=== PATIENT | female | born 1985 | race Two or more races ===

== ENCOUNTER 2020-02-17 09:35 | Emergency (ER) | payer OTHER, SELFPAY ==
[2020-02-17 09:46] VITALS: PULSE 95; RESP 93; TEMP 36.8; O2SAT 99; BMI 33.3
--- NOTE | 2020-02-17 10:28 | ED_ITS ---
HPI - Back Pain/Injury General Chief Complaint: Back Pain/Injury Stated Complaint: multiple complaints Time Seen by Provider: 02/17/20 09:54 History of Present Illness HPI Narrative: patient presents to the ED for posterior neck pain, upper, and lower back pain for one week that is worse on movement. patient denies any photophobia, neck stiffness, fever, chills, nausea, vomiting, flank pain, abdominal pain, dysuria, hematuria, vaginal bleeding, or vaginal discharge. Patient denies any headache. Patient denies any trauma or fall. patient denies any urinary / bowel incontinence. Patient states normal gait MD elicited complaint: back pain Onset (ago): week(s) (1 week) Related Data Allergies Allergy/AdvReac Type Severity Reaction Status Date / Time penicillin V Allergy Unknown Rash Verified 02/17/20 09:45 Review of Systems Review of Systems: Yes all other systems are reviewed and are negative Constitutional: Constitutional: Reports as per HPI, Reports no additional constitutional complaints, Denies body ache(s), Denies chills, Denies fatigue, Denies headache(s), Denies malaise and Denies night sweats Eyes: Eyes: Reports as per HPI, Reports no additional eye complaints, Denies blind spots and Denies blurry vision ENT: Reports system reviewed and no additional complaints, except as documented, Reports as per HPI and Denies headache(s) Cardiovascular: Cardiovascular: Reports no additional cardiovascular complaints, Denies chest pain, Denies chest pain at rest, Denies chest pain with activity, Denies Epigastric Pain, Denies rapid heart rate, Denies pedal edema and Denies edema Respiratory: Respiratory: Reports as per HPI and Reports no additional respiratory complaints Gastrointestinal: Gastrointestinal: Reports as per HPI, Reports no additional gastrointestinal complaints, Denies abdominal pain, Denies belching, Denies melena, Denies bloating, Denies hematochezia, Denies tenesmus, Denies coffee ground emesis, Denies constipation and Denies excessive flatus Genitourinary: Genitourinary: Denies abnormal vaginal bleeding, Denies amenorrhea, Denies hematuria, Denies urinary frequency and Denies difficulty vo iding Musculoskeletal: Comments: back pain Neurologic: Denies headache(s) Endocrine: Endocrine: Denies fatigue [facility] Past Medical History Medical History (Updated 02/17/20 @ 12:35 by AYAKA Rodriguez) Patient denies significant medical history Surgical History (Updated 02/17/20 @ 09:49 by Chelsey Buitrago) H/O tubal ligation Social History Social History Alcohol intake: current Alcohol intake frequency: holidays/special occasions only Smoking Status: Former smoker Use of substances other than those prescribed or required for medical reasons: No Advance Directives: Yes Advance Directives Information Provided: Yes Advance Directives on File: No Physical Exam Vital Signs: Vital Signs: Vital Signs Temp Pulse Resp BP Pulse Ox 02/17/20 11:54 98 F 60 16 115/52 L 100 02/17/20 09:46 98.3 F 95 93 H 99 Body Mass Index 33.3 Const: General: cooperative, healthy appearing and comfortable Orientation/consciousness: patient oriented x3 HENMT: Head: Yes normal to inspection Eyes: General: appearance normal, both eyes and all related structures Neck: Other: Mild posterior neck tenderness on palpation. Negative for neck stiffness Neck: Yes normal visual inspection, Yes full ROM, No no lymphadenopathy, Yes no meningeal signs, No anterior neck swelling, No bilateral parotid enlargement, No lymphadenopathy, No midline deformity, No positive Brudzinski's sign, No positive Kernig's sign and Yes no JVD Chest: Chest palpation & inspection: normal inspection of the chest and normal palpation of entire chest wall Resp: Effort & Inspection: normal respiratory effort, able to speak in complete sentences, normal respiratory pattern, no audible wheezes, no cough, respiratory effort not decreased, no grunting, not labored, no nasal flaring, no paradoxical thoraco-abdom movements and no pursed lip breathing Auscultation: clear to auscultation bilaterally Cardio: Jugular venous distension: no JVD Rate: regular rate Heart sounds: S1 normal heart sound present and S2 normal heart sound present GI: Inspection: Yes normal to inspection, No abdominal wall ecchymosis, No Abdominal wall edema, No distended and No incision Palpation (GI): not firm, nontender, no guarding, not rigid, hepatosplenomegaly present and no hepatosplenomegaly : General: Yes no CVA tenderness Back/Spine/Pelvis: Back: no CVA tenderness and back tenderness ( positive for thoracic and lumbar spine tenderness.) Skin: General skin exam: no rashes or lesions noted Neuro: General: patient oriented x3, gait normal, no meningeal signs and CN's II-XI intact bilaterally Cranial nerves: Yes CN's II-XII intact bilaterally Extrem: Other: normal gait General: Yes normal to inspection and Yes full ROM Psych: Appearance: grossly normal and well kempt Course Course Course Narrative: PATIENT'S WILL HAVE NECK CT, THORACIC X-RAY, AND LUMBAR X-RAY TO EVALUATE FOR ARTHRITIS OR FRACTURE. PATIENT HAS NORMAL GAIT. HISTORY PHYSICAL EXAM DOES NOT INDICATE MENINGITIS. NEGATIVE FOR ANY NECK STIFFNESS, PHOTOPHOBIA, OR MENINGEAL SIGNS. Reevaluation(s) Reevaluation #1: PATIENT IMAGES WERE ALL NEGATIVE FOR FRACTURES OR ARTHRITIS. DIAGNOSIS MUSCULAR PAIN. Time: 12:22 MDM - Back Pain/Injury MDM Narrative Medical decision making narrative: DIAGNOSIS IS STRAIN. NEGATIVE FOR FRACTURE OR ARTHRITIS. UA does not indicate UTI. UA indicate more did catch. Patient does not have any urinary symptoms andAnd back pain is all in the spine. negative for any CVA for flanks Lab Data Labs: Lab Results 02/17/20 02/17/20 Range/Units 10:18 10:18 Urine Color YELLOW Urine Appearance HAZY Urine pH 5.5 (5.0-8.0) Ur Specific [place] >= 1.030 H (1.005-1.025) Urine Protein NEG (NEG-TRACE) MG/DL Urine Glucose (UA) NEG (NEG) MG/DL Urine Ketones NEG (NEG) MG/DL Urine Blood NEG (NEG) Urine Nitrite NEG (NEG) Ur Leukocyte Esterase TRACE H (NEG) Urine RBC 0 (0) /HPF Urine WBC 5-9 H (0-4) /HPF Ur Squamous Epith Cells 2+ /LPF Urine Bacteria 1+ /LPF Urine Test NEGATIVE (NEGATIVE) Discharge Plan Discharge Clinical Impression: Strain of lumbar region Thoracic back pain Qualifiers: Chronicity: acute Cervical strain Qualifiers: Encounter type: initial encounter Qualified Code(s): S16.1XXA - Strain of muscle, fascia and tendon at neck level, initial encounter Patient Disposition: Home, Self-Care Instructions: Cervical Strain (ED), Thoracic Back Strain (ED) Additional Instructions: return to the ED for any abdominal pain, flank pain, fever, chills, nausea, bowel/urinary incontinence, paralysis of lower extremiteis, headache, dizziness, hematuria, dysuria, or any other concerning symptoms. Continue taking motrin and flexeril as prescribed. Referrals: Lalitha Nichols MD [Primary Care Provider] - 2 days (neck & back strain. Imagings were negative for arthritis or imaging.) Stand Alone Forms: Work/School Release Interventions: ED Discharge Assessment Last Done: 02/17/20 13:11 Discharge Date/Time: 02/17/20 13:11
[2020-02-17 10:48] LABS: Glucose Urine UA NEG (NEG); Leukocyte Esterase Urine TRACE (NEG); Nitrite Urine NEG (NEG); PH 5.5 (5.0-8.0); Specific Gravity - Urine >= 1.030 (1.005-1.025); Urine Blood NEG (NEG); Urine Ketones NEG (NEG); Urine Protein NEG (NEG-TRACE)
[2020-02-17 10:50] LABS: Appearance Urine HAZY; Color Urine YELLOW
[2020-02-17 10:52] LABS: UPreg QC Valid YES; Urine Pregnancy NEGATIVE (NEGATIVE)
--- NOTE | 2020-02-17 11:03 | XR_ITS ---
EXAMINATION: THORACIC SPINE X-RAY CLINICAL INFORMATION: Back pain COMPARISON: None TECHNIQUE: 3 views of the thoracic spine FINDINGS: Bone alignment is normal. No fracture or dislocation is seen. There is mild degenerative spondylosis of the mid and lower thoracic spine with small osteophytes. Disc spaces are normal. Paraspinal soft tissues are normal. IMPRESSION: Mild degenerative spondylosis of the mid and lower thoracic spine. EXAMINATION: Lumbar spine x-ray CLINICAL INFORMATION: Back pain COMPARISON: None. TECHNIQUE: 3 views of the lumbar spine FINDINGS: Bone alignment is normal. No fracture or dislocation is seen. Disc spaces are normal. Paraspinal soft tissues are unremarkable. IMPRESSION: Unremarkable exam.
--- NOTE | 2020-02-17 11:03 | CT_ITS ---
EXAMINATION: CT CERVICAL SPINE WITHOUT CONTRAST CLINICAL INFORMATION: Neck pain and back pain COMPARISON: Radiographs thoracic and lumbar spine 02/17/2020 TECHNIQUE: Multidetector volumetric CT imaging of the cervical spine is performed without contrast in the axial plane. Additional 2D reformatted coronal and sagittal images are generated on the CT workstation and uploaded to PACS. No intravenous or intrathecal contrast. DOSE LOWERING TECHNIQUES: This CT examination was performed using dose optimization techniques as appropriate, variously including the following: *Automated exposure control *Adjustment of mA and/or kV according to patient size (this includes techniques or standardized protocols for targeted exams where dose is matched to indication/reason for exam; i.e. extremities or head) *Use of iterative reconstruction technique DLP: 471 mGy-cm FINDINGS: There is no vertebral compression fracture, fracture line, spondylolisthesis, or prevertebral soft tissue swelling. The craniocervical junction appears normal. The odontoid appears intact. No spinal stenosis. There is straightening of the cervical lordosis. There is no reversal of lordosis. There is no definite disc narrowing. No erosive changes. No destructive process. Facet joints are unremarkable. There is no apical pneumothorax. IMPRESSION: No acute bony abnormality or prevertebral soft tissue swelling.
[2020-02-17 11:04] LABS: Bacteria Urine 1+ /LPF; RBC Urine 0 /HPF (0); Squamous Epithelial Cell Urine 2+ /LPF
[2020-02-17] MEDS: Ketorolac Tromethamine 30 MG/ML VIAL IM (11:25)
[2020-02-17] MEDS: Cyclobenzaprine HCl 10 MG TABLET PO (11:25)
[2020-02-17 11:54] VITALS: BP 115/52; PULSE 60; RESP 16; TEMP 36.6; O2SAT 100
== END 2020-02-17 13:11 | disposition home or self-care (01) ==
PROVIDERS: Physician Assistant; Emergency Provider Emergency Medicine; PCP Internal Medicine
DX: S39.012A Strain of muscle, fascia and tendon of lower back, initial encounter (principal); S16.1XXA Strain of muscle, fascia and tendon at neck level, initial encounter; X58.XXXA Exposure to other specified factors, initial encounter; M54.6 Pain in thoracic spine; Y93.9 Activity, unspecified; Y92.9 Unspecified place or not applicable; Y99.9 Unspecified external cause status
CPT/HCPCS: 72072; 72100; 72125; 81001; 81025; 87086; 96372; 99284; J1885

== ENCOUNTER 2020-04-10 14:56 | Outpatient (REF) | payer OTHER, SELFPAY ==
[2020-04-13 08:04] LABS: HIV AB/AG Nonreactive (Nonreactive)
[2020-04-15 02:58] LABS: HPV mRNA E6/E7 rflx Not Detected (Not Detected)
== END 2020-04-10 14:57 | disposition home or self-care (01) ==
LOC: HO.LAB 14:56
PROVIDERS: PCP Internal Medicine; Referring Provider Internal Medicine; Visit Provider Advanced Practice Midwife
DX: Z01.419 Encounter for gynecological examination (general) (routine) without abnormal findings (principal); N92.6 Irregular menstruation, unspecified; Z20.2 Contact with and (suspected) exposure to infections with a predominantly sexual mode of transmission
CPT/HCPCS: 87389; 87491; 87591; 87624; 87625; 88142

== ENCOUNTER 2020-06-30 12:40 | Outpatient (REF) | payer OTHER, SELFPAY | END 2020-06-30 12:41 | disposition home or self-care (01) | LOC: HO.LAB 12:40 | PROVIDERS: Visit Provider Nurse Practitioner Family | DX: J32.9 Chronic sinusitis, unspecified (principal); Z20.822 Contact with and (suspected) exposure to COVID-19 | CPT/HCPCS: 36415; U0003; U0005 ==

== ENCOUNTER 2020-07-01 22:11 | Emergency (ER) | payer OTHER, SELFPAY ==
--- NOTE | ~2020-07-01 | XR_ITS ---
EXAMINATION: XR CHEST CLINICAL INFORMATION: Fever, weakness. Evaluate for pneumonia. COMPARISON: 07/03/2019 TECHNIQUE: Frontal view of the chest was obtained. FINDINGS: The lungs are well expanded. There is no focal consolidation, edema, or effusion. No pneumothorax. The cardiomediastinal silhouette is within normal limits. No acute osseous abnormality. XR/XR chest 1V IMPRESSION: Clear lungs.
--- NOTE | ~2020-07-01 | CT_ITS ---
EXAMINATION: CT ABDOMEN AND PELVIS WITH CONTRAST CLINICAL INFORMATION: Abdominal pain and diarrhea COMPARISON: 02/18/2019 TECHNIQUE: Multidetector volumetric images were obtained from the superior aspect of the liver through the pubic symphysis following administration 85 mL of Omnipaque 350 intravenous contrast. Sagittal and coronal reformatted images were obtained on the technologist's workstation. Oral contrast: No This CT examination was performed using dose optimization techniques as appropriate, variously including the following: *Automated exposure control *Adjustment of mA and/or kV according to patient size (this includes techniques or standardized protocols for targeted exams where dose is matched to indication/reason for exam; i.e. extremities or head) *Use of iterative reconstruction technique DLP: 695 mGy-cm FINDINGS: LUNG BASES: The visualized lung bases are unremarkable. LIVER, GALLBLADDER, AND BILIARY TREE: The liver is normal in size, shape, and attenuation. No focal hepatic lesion or biliary ductal dilatation is present. Cholecystectomy. PANCREAS: Unremarkable. SPLEEN: Unremarkable. ADRENAL GLANDS: Unremarkable. KIDNEYS AND URETERS: The kidneys are normal in size, shape, and attenuation. No hydronephrosis, hydroureter, or calculi seen. No perinephric stranding. BLADDER: Unremarkable. GASTROINTESTINAL TRACT: The stomach is unremarkable. Normal caliber of the small bowel. There is no obstruction. There is no significant colonic diverticulosis. No colonic wall thickening or inflammation. The appendix is not seen. ABDOMINAL WALL: No significant hernia is appreciated. LYMPH NODES: No retroperitoneal lymphadenopathy. Prominent mesenteric lymph nodes are seen in the right lower quadrant. VASCULAR: Unremarkable. PELVIC VISCERA: The uterus and adnexa are unremarkable. OSSEOUS STRUCTURES: No acute or suspicious osseous abnormality. CT/CT abdomen pelvis w con IMPRESSION: Prominent right lower quadrant mesenteric lymph nodes. Consider mesenteric adenitis. Otherwise, no acute findings in the abdomen or pelvis.
[2020-07-01 22:37] VITALS: BP 111/62; PULSE 89; RESP 17; TEMP 37.3; O2SAT 98; BMI 34.0
[2020-07-01 22:55] VITALS: BP 111/62; PULSE 89; RESP 17; TEMP 37.3; O2SAT 98
--- NOTE | 2020-07-01 23:03 | ED_ITS ---
HPI - General Adult General Chief complaint: General Medical <Mya Mederos NP - Last Filed: 07/02/20 01:49> Stated complaint: Fever/Abdominal pain <May Mederos NP - Last Filed: 07/02/20 01:49> Time Seen by Provider: 07/01/20 22:22 <May Mederos NP - Last Filed: 07/02/20 01:49> Source: patient <May Mederos NP - Last Filed: 07/02/20 01:49> Mode of arrival: ambulatory <May Mederos NP - Last Filed: 07/02/20 01:49> Limitations: no limitations <ABRAHAN Blake Last Filed: 07/02/20 01:49> History of Present Illness HPI narrative: 35 yo female here with complaints of body aches, chills, fever with max temp 102, nausea, generalized abdominal pain and diarrhea x 3 days. Seen by PCP yesterday and had negative COVID testing. Continued symptoms since. <May Mederos NP - Last Filed: 07/02/20 01:49> Related Data Home medications: Previous Rx's Medication Instructions Recorded levofloxacin 500 mg tablet 500 mg PO DAILY #7 tab 06/30/20 <BARAHAN Blake Last Filed: 07/02/20 01:49> Allergies/adverse reactions: Allergies Allergy/AdvReac Type Severity Reaction Status Date / Time penicillin V Allergy Unknown Rash Verified 06/30/20 11:29 <ABRAHAN Blake Last Filed: 07/02/20 01:49> Review of Systems Review of Systems: Yes all other systems are reviewed and are negative <ABRAHAN Blake Last Filed: 07/02/20 01:49> Constitutional: Constitutional: Reports no additional constitutional complaints, Denies body ache(s), Reports chills, Reports fever(s), Denies headache(s) and Denies weakness <ABRAHAN Blake Last Filed: 07/02/20 01:49> Eyes: Eyes: Reports no additional eye complaints and Denies change in vision <May Mederos NP - Last Filed: 07/02/20 01:49> ENT: Reports system reviewed and no additional complaints, except as documented, Denies dizziness, Denies headache(s), Denies nasal congestion, Denies nasal discharge and Denies neck pain <May Mederos NP - Last Filed: 07/02/20 01:49> Cardiovascular: Cardiovascular: Reports no additional cardiovascular complaints, Denies chest pain, Denies leg edema and Denies dyspnea <May Mederos NP - Last Filed: 07/02/20 01:49> Respiratory: Respiratory: Reports no additional respiratory complaints, Denies cough and Denies dyspnea <May Mederos NP - Last Filed: 07/02/20 01:49> Gastrointestinal: Gastrointestinal: Reports no additional gastrointestinal complaints, Reports abdominal pain, Reports diarrhea, Reports nausea and Denies vomiting <May Mederos NP - Last Filed: 07/02/20 01:49> Genitourinary: Genitourinary: Reports no additional female genitourinary complaints and Denies urinary incontinence <May Mederos NP - Last Filed: 07/02/20 01:49> Musculoskeletal: Musculoskeletal: Reports no additional musculoskeletal complaints, Denies back pain, Denies arthralgias, Denies joint swelling, Denies neck pain, Denies numbness and Denies tingling <May Mederos NP - Last Filed: 07/02/20 01:49> Integumentary/Breasts: Skin/Breast: Reports system reviewed and no additional complaints, except as docu and Denies rash <May Mederos NP - Last Filed: 07/02/20 01:49> Neurologic: Reports system reviewed and no additional complaints, except as documented, Denies Abnormal speech present, Denies dizziness, Denies headach e(s), Denies numbness, Denies tingling and Denies weakness <May Mederos NP - Last Filed: 07/02/20 01:49> PMFSH Past Medical History Attestation statement: The following information was validated with the patient. <ABRAHAN Blake Last Filed: 07/02/20 01:49> Source: old records reviewed and nursing notes reviewed <May Mederos NP - Last Filed: 07/02/20 01:49> Medical History: Medical History Arthritis Lower back pain Patient denies significant medical history <May Mederos NP - Last Filed: 07/02/20 01:49> Surgical History: Surgical History H/O tubal ligation History of appendectomy History of cholecystectomy <May Mederos NP - Last Filed: 07/02/20 01:49> Family History Family History: Family History Father No problems noted. Mother Diabetes Maternal Grandmother Breast cancer Diabetes Maternal Grandfather Past heart attack CVD (cardiovascular disease) Brother Brain cancer Maternal Uncle Colon cancer <May Mederos NP - Last Filed: 07/02/20 01:49> Social History Social History: Social History Alcohol intake: never Smoking Status: Never smoker Use of substances other than those prescribed or required for medical reasons: No Advance Directives: No Advance Directives Information Provided: No Gender identity: female <May Mederos NP - Last Filed: 07/02/20 01:49> Physical Exam Vital Signs: Vital Signs: Last Vital Signs Temp 98.9 F 07/02/20 02:00 Pulse 79 07/02/20 02:00 Resp 18 07/02/20 02:00 BP 100/83 07/02/20 02:00 Pulse Ox 97 07/02/20 02:00 Body Mass Index 34.0 <May Mederos NP - Last Filed: 07/02/20 01:49> Vital Signs: Last Vital Signs Temp 98.9 F 07/02/20 02:00 Pulse 79 07/02/20 02:00 Resp 18 07/02/20 02:00 BP 100/83 07/02/20 02:00 Pulse Ox 97 07/02/20 02:00 Body Mass Index 34.0 <Lolita Prakash MD - Last Filed: 07/02/20 02:54> Const: General: cooperative, healthy appearing, comfortable and no acute distress <May Mederos NP - Last Filed: 07/02/20 01:49> Orientation/consciousness: patient oriented x3 <May Mederos NP - Last Filed: 07/02/20 01:49> Limitations: no limitations <May Mederos NP - Last Filed: 07/02/20 01:49> HENMT: Head: Yes normal to inspection <May Mederos NP - Last Filed: 07/02/20 01:49> Ears: hearing grossly normal bilaterally <May Mederos NP - Last Filed: 07/02/20 01:49> General nose exam: Normal external nose present <May Mederos NP - Last Filed: 07/02/20 01:49> Face and sinus: Yes normal facial exam <May Mederos NP - Last Filed: 07/02/20 01:49> Mouth: Normal oral and palatal mucosa present <May Mederos NP - Last Filed: 07/02/20 01:49> Throat: Yes posterior oropharynx normal <May Mederos NP - Last Filed: 07/02/20 01:49> Eyes: General: appearance normal, both eyes and all related structures <May Mederos NP - Last Filed: 07/02/20 01:49> Pupils: Equal, round and reactive pupils present <May Mederos NP - Last Filed: 07/02/20 01:49> Neck: Neck: Yes normal visual inspection <May Mederos NP - Last Filed: 07/02/20 01:49> Chest: Chest palpation & inspection: normal inspection of the chest <May Mederos NP - Last Filed: 07/02/20 01:49> Resp: Effort & Inspection: normal respiratory effort <May Mederos NP - Last Filed: 07/02/20 01:49> Auscultation: clear to auscultation bilaterally <May Mederos NP - Last Filed: 07/02/20 01:49> Cardio: Rate: regular rate <May Mederos NP - Last Filed: 07/02/20 01:49> Rhythm: regular rhythm <May Mederos NP - Last Filed: 07/02/20 01:49> Peripheral pulses: Peripheral pulses 2+ throughout <May Mederos NP - Last Filed: 07/02/20 01:49> GI: Inspection: Yes normal to inspection <May Mederos NP - Last Filed: 07/02/20 01:49> Palpation (GI): Soft to palpation and Tenderness to palpation present (GI) (mild diffuse tenderness with no rebound or guarding ) <May Mederos NP - Last Filed: 07/02/20 01:49> Auscultation: normal bowel sounds <May Mederos NP - Last Filed: 07/02 01:49> Back/Spine/Pelvis: Thoracic/Lumbar Spine: thoracic and lumbar spine normal to inspection <May Mederos NP - Last Filed: 07/02/20 01:49> Skin: General skin exam: no rashes or lesions noted <May Mederos NP - Last Filed: 07/02/20 01:49> Neuro: General: patient oriented x3, no focal motor deficits and normal sensation to monofilament <May Mederos NP - Last Filed: 07/02/20 01:49> Cranial nerves: Yes Equal, round and reactive pupils present <May Mederos NP - Last Filed: 07/02/20 01:49> Cognition (Neuro): normal cognition <May Mederos NP - Last Filed: 07/02/20 01:49> Speech: No Abnormal speech present <May Mederos NP - Last Filed: 07/02/20 01:49> Gait exam (Neuro): Normal gait present <May Mederos NP - Last Filed: 07/02/20 01:49> Motor exam (neuro): 5/5 motor strength present throughout <May Mederos NP - Last Filed: 07/02/20 01:49> Extrem: General: Yes normal to inspection <May Mederos NP - Last Filed: 07/02/20 01:49> Course Course Course Narrative: 35 yo female here with complaints of fevers, chills, generalized abdominal cramping, nausea and diarrhea x 3 days. On exam mild tachycardia, low grade temp and mild diffuse abdominal tenderness. Will check labs including blood cultures, lactic acid, COVID screen, UA, CXR. 0100-Labs unremarkable. UA negative. CXR and COVID screen unremarkable. Continued diffuse AP with diarrhea. Will check Ct A/P. 0200-Sign out to Dr Prakash pending above. <May Mederos NP - Last Filed: 07/02/20 01:49> Patient re-evaluated and provided all results and findings that are negative for any acute pathologies. On review of note symptoms and findings are most consistent with viral gastroenteritis patient was encouraged to increase fluid hydration and follow-up with her primary care provider. <Lolita Prakash MD - Last Filed: 07/02/20 02:54> Medical Decision Making MDM Narrative Medical decision making narrative: Viral gastroenteritis, infectious diarrhea, COVID-19, viral syndrome, ,pneumonia, UTI, colitis, diverticulitis, appendicitis <May Mederos NP - Last Filed: 07/02/20 01:49> Lab Data Result diagrams: : 07/02/20 00:27 07/02/20 00:27 <May Mederos NP - Last Filed: 07/02/20 01:49> Labs: Lab Results 07/02/20 07/02/20 07/02/20 Range/Units 00:21 00:21 00:21 WBC (4.8-10.8) X10*3/uL RBC (4.20-5.50) X10*6/uL Hgb (12.0-16.0) g/dl Hct (37-47) % MCV (80-98) fL MCH (27.0-33.0) pg MCHC (31.0-35.0) g/dl RDW (11.0-16.0) % Plt Count (160-400) X10*3/uL MPV (9.4-12.3) fL Immature Gran % (Auto) (0.0-0.4) % Neut % (Auto) (45-73) % Lymph % (Auto) (20-40) % [place] % (Auto) (2-11) % Eos % (Auto) (0-4) % Baso % (Auto) (0-2) % Lymph # (Auto) (1.2-4.9) X10*3/uL [place] # (Auto) (0.1-1.2) X10*3/uL Eos # (Auto) (0.0-0.4) X10*3/uL Baso # (Auto) (0.0-0.2) X10*3/uL Abs Immat Gran (auto) (0.00-0.03) X10*3/uL Absolute Neuts (auto) (2.0-8.3) X10*3/uL Absolute Nucleated RBC (0.0-0.012) X10*3/uL Nucleated RBC % (auto) (0.0-0.2) /100WBC PT (10.8-13.0) SEC INR (0.9-1.1) Sodium (135-145) mmol/L Potassium (3.3-5.1) mmol/L Chloride (96-108) mmol/L Carbon Dioxide (22-29) mmol/L Anion Gap (12-20) BUN (9-16) mg/dL Creatinine (0.5-1.4) mg/dL Estim Creat Clear Calc Estimated GFR Random Glucose (60-115) mg/dL Lactic Acid (0.5-2.0) mmol/L Calcium (8.4-10.2) mg/dL Magnesium (1.6-2.6) mg/dL Total Bilirubin (0.0-1.0) mg/dL Direct Bilirubin (0.0-0.5) mg/dL AST (5-31) U/L ALT (0-31) U/L Alkaline Phosphatase (39-117) U/L Total Protein (6.5-8.0) g/dL Albumin (3.5-5.0) g/dL Urine Color YELLOW Urine Appearance CLEAR Urine pH 7.0 (5.0-8.0) Ur Specific [place] 1.020 (1.005-1.025) Urine Protein NEG (NEG-TRACE) MG/DL Urine Glucose (UA) NEG (NEG) MG/DL Urine Ketones NEG (NEG) MG/DL Urine Blood NEG (NEG) Urine Nitrite NEG (NEG) Ur Leukocyte Esterase NEG (NEG) Urine Test NEGATIVE (NEGATIVE) COVID-19 (MIS) Negative (Negative) COVID-19 Clin Com See Note 07/02/20 07/02/20 07/02/20 Range/Units 00:27 00:27 00:27 WBC 6.6 (4.8-10.8) X10*3/uL RBC 4.72 (4.20-5.50) X10*6/uL Hgb 13.7 (12.0-16.0) g/dl Hct 41.3 (37-47) % MCV 87.5 (80-98) fL MCH 29.0 (27.0-33.0) pg MCHC 33.2 (31.0-35.0) g/dl RDW 11.9 (11.0-16.0) % Plt Count 235 (160-400) X10*3/uL MPV 9.5 (9.4-12.3) fL Immature Gran % (Auto) 0.3 (0.0-0.4) % Neut % (Auto) 68.2 (45-73) % Lymph % (Auto) 23.3 (20-40) % [place] % (Auto) 7.2 (2-11) % Eos % (Auto) 0.8 (0-4) % Baso % (Auto) 0.2 (0-2) % Lymph # (Auto) 1.5 (1.2-4.9) X10*3/uL [place] # (Auto) 0.5 (0.1-1.2) X10*3/uL Eos # (Auto) 0.1 (0.0-0.4) X10*3/uL Baso # (Auto) 0.0 (0.0-0.2) X10*3/uL Abs Immat Gran (auto) 0.02 (0.00-0.03) X10*3/uL Absolute Neuts (auto) 4.5 (2.0-8.3) X10*3/uL Absolute Nucleated RBC 0.000 (0.0-0.012) X10*3/uL Nucleated RBC % (auto) 0.0 (0.0-0.2) /100WBC PT 13.8 H (10.8-13.0) SEC INR 1.2 H (0.9-1.1) Sodium 140 (135-145) mmol/L Potassium 3.8 (3.3-5.1) mmol/L Chloride 104 (96-108) mmol/L Carbon Dioxide 28 (22-29) mmol/L Anion Gap 12 (12-20) BUN 8 L (9-16) mg/dL Creatinine 0.70 (0.5-1.4) mg/dL Estim Creat Clear Calc 114.0 Estimated GFR > 60 Random Glucose 93 (60-115) mg/dL Lactic Acid (0.5-2.0) mmol/L Calcium 8.9 (8.4-10.2) mg/dL Magnesium 2.0 (1.6-2.6) mg/dL Total Bilirubin 0.4 (0.0-1.0) mg/dL Direct Bilirubin 0.2 (0.0-0.5) mg/dL AST 19 (5-31) U/L ALT 27 (0-31) U/L Alkaline Phosphatase 59 (39-117) U/L Total Protein 7.2 (6.5-8.0) g/dL Albumin 3.8 (3.5-5.0) g/dL Urine Color Urine Appearance Urine pH (5.0-8.0) Ur Specific [place] (1.005-1.025) Urine Protein (NEG-TRACE) MG/DL Urine Glucose (UA) (NEG) MG/DL Urine Ketones (NEG) MG/DL Urine Blood (NEG) Urine Nitrite (NEG) Ur Leukocyte Esterase (NEG) Urine Test (NEGATIVE) COVID-19 (MIS) (Negative) COVID-19 Clin Com 07/02/20 Range/Units 00:27 WBC (4.8-10.8) X10*3/uL RBC (4.20-5.50) X10*6/uL Hgb (12.0-16.0) g/dl Hct (37-47) % MCV (80-98) fL MCH (27.0-33.0) pg MCHC (31.0-35.0) g/dl RDW (11.0-16.0) % Plt Count (160-400) X10*3/uL MPV (9.4-12.3) fL Immature Gran % (Auto) (0.0-0.4) % Neut % (Auto) (45-73) % Lymph % (Auto) (20-40) % [place] % (Auto) (2-11) % Eos % (Auto) (0-4) % Baso % (Auto) (0-2) % Lymph # (Auto) (1.2-4.9) X10*3/uL [place] # (Auto) (0.1-1.2) X10*3/uL Eos # (Auto) (0.0-0.4) X10*3/uL Baso # (Auto) (0.0-0.2) X10*3/uL Abs Immat Gran (auto) (0.00-0.03) X10*3/uL Absolute Neuts (auto) (2.0-8.3) X10*3/uL Absolute Nucleated RBC (0.0-0.012) X10*3/uL Nucleated RBC % (auto) (0.0-0.2) /100WBC PT (10.8-13.0) SEC INR (0.9-1.1) Sodium (135-145) mmol/L Potassium (3.3-5.1) mmol/L Chloride (96-108) mmol/L Carbon Dioxide (22-29) mmol/L Anion Gap (12-20) BUN (9-16) mg/dL Creatinine (0.5-1.4) mg/dL Estim Creat Clear Calc Estimated GFR Random Glucose (60-115) mg/dL Lactic Acid 0.8 (0.5-2.0) mmol/L Calcium (8.4-10.2) mg/dL Magnesium (1.6-2.6) mg/dL Total Bilirubin (0.0-1.0) mg/dL Direct Bilirubin (0.0-0.5) mg/dL AST (5-31) U/L ALT (0-31) U/L Alkaline Phosphatase (39-117) U/L Total Protein (6.5-8.0) g/dL Albumin (3.5-5.0) g/dL Urine Color Urine Appearance Urine pH (5.0-8.0) Ur Specific [place] (1.005-1.025) Urine Protein (NEG-TRACE) MG/DL Urine Glucose (UA) (NEG) MG/DL Urine Ketones (NEG) MG/DL Urine Blood (NEG) Urine Nitrite (NEG) Ur Leukocyte Esterase (NEG) Urine Test (NEGATIVE) COVID-19 (MIS) (Negative) COVID-19 Clin Com <May Mederos NP - Last Filed: 07/02/20 01:49> Lab Results 07/02/20 07/02/20 07/02/20 Range/Units 00:21 00:21 00:21 WBC (4.8-10.8) X10*3/uL RBC (4.20-5.50) X10*6/uL Hgb (12.0-16.0) g/dl Hct (37-47) % MCV (80-98) fL MCH (27.0-33.0) pg MCHC (31.0-35.0) g/dl RDW (11.0-16.0) % Plt Count (160-400) X10*3/uL MPV (9.4-12.3) fL Immature Gran % (Auto) (0.0-0.4) % Neut % (Auto) (45-73) % Lymph % (Auto) (20-40) % [place] % (Auto) (2-11) % Eos % (Auto) (0-4) % Baso % (Auto) (0-2) % Lymph # (Auto) (1.2-4.9) X10*3/uL [place] # (Auto) (0.1-1.2) X10*3/uL Eos # (Auto) (0.0-0.4) X10*3/uL Baso # (Auto) (0.0-0.2) X10*3/uL Abs Immat Gran (auto) (0.00-0.03) X10*3/uL Absolute Neuts (auto) (2.0-8.3) X10*3/uL Absolute Nucleated RBC (0.0-0.012) X10*3/uL Nucleated RBC % (auto) (0.0-0.2) /100WBC PT (10.8-13.0) SEC INR (0.9-1.1) Sodium (135-145) mmol/L Potassium (3.3-5.1) mmol/L Chloride (96-108) mmol/L Carbon Dioxide (22-29) mmol/L Anion Gap (12-20) BUN (9-16) mg/dL Creatinine (0.5-1.4) mg/dL Estim Creat Clear Calc Estimated GFR Random Glucose (60-115) mg/dL Lactic Acid (0.5-2.0) mmol/L Calcium (8.4-10.2) mg/dL Magnesium (1.6-2.6) mg/dL Total Bilirubin (0.0-1.0) mg/dL Direct Bilirubin (0.0-0.5) mg/dL AST (5-31) U/L ALT (0-31) U/L Alkaline Phosphatase (39-117) U/L Total Protein (6.5-8.0) g/dL Albumin (3.5-5.0) g/dL Urine Color YELLOW Urine Appearance CLEAR Urine pH 7.0 (5.0-8.0) Ur Specific [place] 1.020 (1.005-1.025) Urine Protein NEG (NEG-TRACE) MG/DL Urine Glucose (UA) NEG (NEG) MG/DL Urine Ketones NEG (NEG) MG/DL Urine Blood NEG (NEG) Urine Nitrite NEG (NEG) Ur Leukocyte Esterase NEG (NEG) Urine Test NEGATIVE (NEGATIVE) COVID-19 (MIS) Negative (Negative) COVID-19 Clin Com See Note 07/02/20 07/02/20 07/02/20 Range/Units 00:27 00:27 00:27 WBC 6.6 (4.8-10.8) X10*3/uL RBC 4.72 (4.20-5.50) X10*6/uL Hgb 13.7 (12.0-16.0) g/dl Hct 41.3 (37-47) % MCV 87.5 (80-98) fL MCH 29.0 (27.0-33.0) pg MCHC 33.2 (31.0-35.0) g/dl RDW 11.9 (11.0-16.0) % Plt Count 235 (160-400) X10*3/uL MPV 9.5 (9.4-12.3) fL Immature Gran % (Auto) 0.3 (0.0-0.4) % Neut % (Auto) 68.2 (45-73) % Lymph % (Auto) 23.3 (20-40) % [place] % (Auto) 7.2 (2-11) % Eos % (Auto) 0.8 (0-4) % Baso % (Auto) 0.2 (0-2) % Lymph # (Auto) 1.5 (1.2-4.9) X10*3/uL [place] # (Auto) 0.5 (0.1-1.2) X10*3/uL Eos # (Auto) 0.1 (0.0-0.4) X10*3/uL Baso # (Auto) 0.0 (0.0-0.2) X10*3/uL Abs Immat Gran (auto) 0.02 (0.00-0.03) X10*3/uL Absolute Neuts (auto) 4.5 (2.0-8.3) X10*3/uL Absolute Nucleated RBC 0.000 (0.0-0.012) X10*3/uL Nucleated RBC % (auto) 0.0 (0.0-0.2) /100WBC PT 13.8 H (10.8-13.0) SEC INR 1.2 H (0.9-1.1) Sodium 140 (135-145) mmol/L Potassium 3.8 (3.3-5.1) mmol/L Chloride 104 (96-108) mmol/L Carbon Dioxide 28 (22-29) mmol/L Anion Gap 12 (12-20) BUN 8 L (9-16) mg/dL Creatinine 0.70 (0.5-1.4) mg/dL Estim Creat Clear Calc 114.0 Estimated GFR > 60 Random Glucose 93 (60-115) mg/dL Lactic Acid (0.5-2.0) mmol/L Calcium 8.9 (8.4-10.2) mg/dL Magnesium 2.0 (1.6-2.6) mg/dL Total Bilirubin 0.4 (0.0-1.0) mg/dL Direct Bilirubin 0.2 (0.0-0.5) mg/dL AST 19 (5-31) U/L ALT 27 (0-31) U/L Alkaline Phosphatase 59 (39-117) U/L Total Protein 7.2 (6.5-8.0) g/dL Albumin 3.8 (3.5-5.0) g/dL Urine Color Urine Appearance Urine pH (5.0-8.0) Ur Specific [place] (1.005-1.025) Urine Protein (NEG-TRACE) MG/DL Urine Glucose (UA) (NEG) MG/DL Urine Ketones (NEG) MG/DL Urine Blood (NEG) Urine Nitrite (NEG) Ur Leukocyte Esterase (NEG) Urine Test (NEGATIVE) COVID-19 (MIS) (Negative) COVID-19 Clin Com 07/02/20 Range/Units 00:27 WBC (4.8-10.8) X10*3/uL RBC (4.20-5.50) X10*6/uL Hgb (12.0-16.0) g/dl Hct (37-47) % MCV (80-98) fL MCH (27.0-33.0) pg MCHC (31.0-35.0) g/dl RDW (11.0-16.0) % Plt Count (160-400) X10*3/uL MPV (9.4-12.3) fL Immature Gran % (Auto) (0.0-0.4) % Neut % (Auto) (45-73) % Lymph % (Auto) (20-40) % [place] % (Auto) (2-11) % Eos % (Auto) (0-4) % Baso % (Auto) (0-2) % Lymph # (Auto) (1.2-4.9) X10*3/uL [place] # (Auto) (0.1-1.2) X10*3/uL Eos # (Auto) (0.0-0.4) X10*3/uL Baso # (Auto) (0.0-0.2) X10*3/uL Abs Immat Gran (auto) (0.00-0.03) X10*3/uL Absolute Neuts (auto) (2.0-8.3) X10*3/uL Absolute Nucleated RBC (0.0-0.012) X10*3/uL Nucleated RBC % (auto) (0.0-0.2) /100WBC PT (10.8-13.0) SEC INR (0.9-1.1) Sodium (135-145) mmol/L Potassium (3.3-5.1) mmol/L Chloride (96-108) mmol/L Carbon Dioxide (22-29) mmol/L Anion Gap (12-20) BUN (9-16) mg/dL Creatinine (0.5-1.4) mg/dL Estim Creat Clear Calc Estimated GFR Random Glucose (60-115) mg/dL Lactic Acid 0.8 (0.5-2.0) mmol/L Calcium (8.4-10.2) mg/dL Magnesium (1.6-2.6) mg/dL Total Bilirubin (0.0-1.0) mg/dL Direct Bilirubin (0.0-0.5) mg/dL AST (5-31) U/L ALT (0-31) U/L Alkaline Phosphatase (39-117) U/L Total Protein (6.5-8.0) g/dL Albumin (3.5-5.0) g/dL Urine Color Urine Appearance Urine pH (5.0-8.0) Ur Specific [place] (1.005-1.025) Urine Protein (NEG-TRACE) MG/DL Urine Glucose (UA) (NEG) MG/DL Urine Ketones (NEG) MG/DL Urine Blood (NEG) Urine Nitrite (NEG) Ur Leukocyte Esterase (NEG) Urine Test (NEGATIVE) COVID-19 (MIS) (Negative) COVID-19 Clin Com <Lolita Prakash MD - Last Filed: 07/02/20 02:54> Imaging Data Chest x-ray: Attestation: I personally reviewed and interpreted this imaging study as follows: <May Mederos NP - Last Filed: 07/02/20 01:49> Radiologist's impression: EXAMINATION: XR CHEST CLINICAL INFORMATION: Fever, weakness. Evaluate for pneumonia. COMPARISON: 07/03/2019 TECHNIQUE: Frontal view of the chest was obtained. FINDINGS: The lungs are well expanded. There is no focal consolidation, edema, or effusion. No pneumothorax. The cardiomediastinal silhouette is within normal limits. No acute osseous abnormality. XR/XR chest 1V IMPRESSION: Clear lungs. <May Mederos NP - Last Filed: 07/02/20 01:49> Discharge Plan Discharge Clinical Impression: Gastroenteritis <May Mederos NP - Last Filed: 07/02/20 01:49> Patient Disposition: Home, Self-Care <May Mederos NP - Last Filed: 07/02/20 01:49> Instructions: Gastroenteritis (ED) <May Mederos NP - Last Filed: 07/02/20 01:49> Additional Instructions: Resume all home medications as prescribed. Increase fluid hydration especially with water. Follow-up with your primary care provider for further outpatient management and re-evaluation. Do not hesitate to return should you develop any acute worsening of your symptoms. <May Mederos NP - Last Filed: 07/02/20 01:49> Prescriptions: No Action levofloxacin 500 mg tablet 500 mg PO DAILY Qty: 7 RF: 0 <May Mederos NP - Last Filed: 07/02/20 01:49> Referrals: Lalitha Nichols MD [Primary Care Provider] - 2 days (Please re-evaluate and treat patient for persistence of symptoms and a negative workup in the emergency department.) <May Mederos NP - Last Filed: 07/02/20 01:49>
[2020-07-02] VITALS: BP 110/68; PULSE 82; RESP 18; TEMP 37.1; O2SAT 100
[2020-07-02] MEDS: Dicyclomine HCl 10 MG CAPSULE PO (00:22)
[2020-07-02] MEDS: 0.9 % Sodium Chloride 1,000 ML 999 ML IV (00:30)
[2020-07-02] MEDS: ondansetron HCL 4 MG/2 ML VIAL IVPUSH (00:30)
[2020-07-02 00:44] LABS: Basophils Percent Auto 0.2 % (0-2); Eosinophils Absolute Auto 0.1 X10*3/uL (0.0-0.4); Eosinophils Percent Auto 0.8 % (0-4); Hematocrit 41.3 % (37-47); Hemoglobin 13.7 g/dl (12.0-16.0); Imm Gran Abs Auto 0.02 X10*3/uL (0.00-0.03); Imm Gran Pct Auto 0.3 % (0.0-0.4); Lymphocytes Absolute Auto 1.5 X10*3/uL (1.2-4.9); Lymphocytes Percent Auto 23.3 % (20-40); MANUAL DIFF FLAG NO; Mean Corpuscular HGB Conc 33.2 g/dl (31.0-35.0); Mean Corpuscular Volume 87.5 fL (80-98); Mean Platelet Volume 9.5 fL (9.4-12.3); Monocytes Absolute Auto 0.5 X10*3/uL (0.1-1.2); Monocytes Percent Auto 7.2 % (2-11); Neutrophils Absolute Auto 4.5 X10*3/uL (2.0-8.3); Neutrophils Percent Auto 68.2 % (45-73); Platelet Count 235 X10*3/uL (160-400); Red Blood Count 4.72 X10*6/uL (4.20-5.50); Red Cell Distribution Width 11.9 % (11.0-16.0); White Blood Count 6.6 X10*3/uL (4.8-10.8)
[2020-07-02 00:52] LABS: INTERNATIONAL NORM RATIO 1.2 (0.9-1.1); Prothrombin Time 13.8 SEC (10.8-13.0)
[2020-07-02 00:52] LABS: Glucose Urine UA NEG (NEG); Leukocyte Esterase Urine NEG (NEG); Nitrite Urine NEG (NEG); Urine Blood NEG (NEG); Urine Ketones NEG (NEG); Urine Protein NEG (NEG-TRACE)
[2020-07-02 00:55] LABS: Appearance Urine CLEAR; Color Urine YELLOW
[2020-07-02 00:56] LABS: UPreg QC Valid YES; Urine Pregnancy NEGATIVE (NEGATIVE)
[2020-07-02 01:00] LABS: Lactic Acid 0.8 mmol/L (0.5-2.0)
[2020-07-02 01:01] LABS: COVID-19 Test Negative (Negative); IDNOW Serial# 9DD0AD1C
[2020-07-02 01:05] LABS: Alanine Aminotransferase 27 U/L (0-31); Albumin Level 3.8 g/dL (3.5-5.0); Alkaline Phosphatase 59 U/L (39-117); Anion Gap 12 (12-20); Aspartate Amino Transferase 19 U/L (5-31); Bilirubin Direct 0.2 mg/dL (0.0-0.5); Bilirubin Total 0.4 mg/dL (0.0-1.0); Blood Urea Nitrogen 8 mg/dL (9-16); Calcium 8.9 mg/dL (8.4-10.2); Carbon Dioxide 28 mmol/L (22-29); Chloride 104 mmol/L (96-108); Estimated Glomerular Filt Rate > 60; Glucose Random 93 mg/dL (60-115); Potassium 3.8 mmol/L (3.3-5.1); Sodium 140 mmol/L (135-145); Total Protein 7.2 g/dL (6.5-8.0)
[2020-07-02 02:00] VITALS: BP 100/83; PULSE 79; RESP 18; TEMP 37.2; O2SAT 97
[2020-07-02] MEDS: iohexoL 350 MG/ML 100 ML INFUS..BTL 85 ML IV (02:25)
[2020-07-02 03:25] VITALS: BP 92/43; PULSE 81; RESP 18; TEMP 36.9; O2SAT 96
== END 2020-07-02 03:26 | disposition home or self-care (01) ==
PROVIDERS: Nurse Practitioner Family; Emergency Provider Emergency Medicine; PCP Internal Medicine
DX: K52.9 Noninfective gastroenteritis and colitis, unspecified (principal); Z20.822 Contact with and (suspected) exposure to COVID-19; R50.9 Fever, unspecified
CPT/HCPCS: 36415; 71045; 74177; 80048; 80076; 81003; 81025; 83605; 83735; 85025; 85610; 87040; 87635; 96361; 96374; 99284; J2405; Q9967

== ENCOUNTER 2020-09-21 10:26 | Emergency (ER) | payer OTHER, SELFPAY ==
--- NOTE | ~2020-09-21 | XR_ITS ---
EXAMINATION: XR HAND, LEFT CLINICAL INFORMATION: Injury COMPARISON: None TECHNIQUE: PA, lateral, and oblique views of the left hand. FINDINGS: There is a minimally displaced fracture through the base of the fifth metacarpal bone. This appears intra-articular with the [facility] joint. No other fracture is seen. Joint spaces are otherwise normal. There is a small soft tissue radiopaque foreign body adjacent to the dorsal middle phalanx of the second finger near the PIP joint. XR/XR hand LT min 3V IMPRESSION: Minimally displaced fracture of the base of the fifth metacarpal bone.
[2020-09-21 11:21] VITALS: BP 123/48; PULSE 70; RESP 18; TEMP 35.9; O2SAT 100; BMI 32.1
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
== END 2020-09-21 13:25 | disposition home or self-care (01) ==
PROVIDERS: Emergency Provider Emergency Medicine; PCP Internal Medicine
DX: S62.92XA Unspecified fracture of left hand, initial encounter for closed fracture (principal); M25.532 Pain in left wrist; Y29.XXXA Contact with blunt object, undetermined intent, initial encounter; Y93.9 Activity, unspecified; Y92.9 Unspecified place or not applicable; Y99.8 Other external cause status
CPT/HCPCS: 29125; 73130; 99283

== ENCOUNTER → 2020-09-23 09:04 | Outpatient (BNVA) | payer OTHER, SELFPAY | PROVIDERS: PCP Internal Medicine; Visit Provider Physician Assistant | DX: S62.308A Unspecified fracture of other metacarpal bone, initial encounter for closed fracture (principal) | CPT/HCPCS: 26600; 29085 ==

== ENCOUNTER 2020-11-04 07:41 | Outpatient (REF) | payer OTHER, SELFPAY ==
--- NOTE | ~2020-11-04 | XR_ITS ---
EXAMINATION: XR HAND, LEFT CLINICAL INFORMATION: Left hand pain COMPARISON: 09/21/2020 TECHNIQUE: PA, lateral, and oblique views of the left hand. FINDINGS: No significant change in the appearance or alignment of the fracture at the base of the 5th metacarpal. Small metallic foreign body in the dorsal soft tissues of the 2nd middle phalanx proximally. No new abnormality. XR/XR hand LT min 3V IMPRESSION: No significant change in the appearance of the fracture at the base of the 5th metacarpal.
== END 2020-11-04 07:42 | disposition home or self-care (01) ==
LOC: HO.HOSX 07:41
PROVIDERS: Visit Provider Physician Assistant
DX: S62.308D Unspecified fracture of other metacarpal bone, subsequent encounter for fracture with routine healing (principal)
CPT/HCPCS: 73130

== ENCOUNTER 2020-12-02 06:35 | Outpatient (REF) | payer OTHER, SELFPAY ==
--- NOTE | ~2020-12-02 | XR_ITS ---
EXAMINATION: XR WRIST, LEFT CLINICAL INFORMATION: Left wrist pain. COMPARISON: Left hand radiographs dated 11/04/2020. TECHNIQUE: PA, lateral, and oblique views of the left wrist. FINDINGS: Chronic fracture at the base of the 5th metacarpal in unchanged anatomic alignment. No acute fracture or dislocation. No joint space narrowing or marginal osteophytes. No osseous erosion. No abnormal soft tissue calcification. XR/XR wrist LT min 3V IMPRESSION: No acute osseous abnormality. Chronic fracture at the base of the 5th metacarpal in unchanged anatomic alignment.
== END 2020-12-02 06:36 | disposition home or self-care (01) ==
LOC: HO.HOSX 06:35
PROVIDERS: Visit Provider Physician Assistant
DX: S62.308D Unspecified fracture of other metacarpal bone, subsequent encounter for fracture with routine healing (principal)
CPT/HCPCS: 73110

== ENCOUNTER 2021-01-19 11:30 | Outpatient (RCR) | payer OTHER, SELFPAY ==
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
--- NOTE | 2021-01-19 11:55 | MHC.OT.DC ---
[address] [phone] F: [phone] Occupational Therapy Discharge Note Provider: Zenon Hernandez PA-C Diagnosis: Left Small Finger MP base fx Date of Evaluation: 12/29/20 Date of Discharge: 01/19/21 Treatments to Date: 5 Discharge Status: Achieved Goals Improved Function Independent with HEP Discharge Summary: Goals met, doing well w/ HEP, progressing w/ strengthening. Low pain at most times. Reports comfort w/ ulnar gutter hand based support orthosis prn. Pt feels she is ready to return to work, is cleared for next week. Electronically Signed By: Carlene Morrison OTR/L Please Sign and return to therapist, thank you for your referral.
== END 2021-01-19 11:56 | disposition home or self-care (01) ==
LOC: HO.OT 11:30
PROVIDERS: PCP Internal Medicine; Visit Provider Physician Assistant
DX: S62.308D Unspecified fracture of other metacarpal bone, subsequent encounter for fracture with routine healing (principal)
CPT/HCPCS: 97035; 97110; 97140; 97165

== ENCOUNTER 2021-02-08 16:44 | Outpatient (REF) | payer OTHER, SELFPAY ==
[2021-02-08 17:33] LABS: Influenza A PCR NEGATIVE (Negative); Influenza B PCR NEGATIVE (Negative); Resp Syncy Virus RNA Qual PCR NEGATIVE (Negative); SARS COV2 PCR INHOUSE NEGATIVE (Negative)
== END 2021-02-08 16:45 | disposition home or self-care (01) ==
LOC: HO.LNP 16:44
PROVIDERS: Visit Provider Internal Medicine
DX: R43.9 Unspecified disturbances of smell and taste (principal); Z20.822 Contact with and (suspected) exposure to COVID-19
CPT/HCPCS: 0241U

== ENCOUNTER 2021-07-16 08:28 | Emergency (ER) | payer OTHER, SELFPAY ==
--- NOTE | 2021-07-16 | ECG_ITS ---
Test Reason : chest pain Blood Pressure : / mmHG Vent. Rate : 061 BPM Atrial Rate : 061 BPM P-R Int : 150 ms QRS Dur : 084 ms QT Int : 410 ms P-R-T Axes : 040 051 035 degrees QTc Int : 412 ms Normal sinus rhythm Normal ECG When compared with ECG of 01-NOV-2019 09:30, No significant change was found Referred By: Generic ED Physician Electronically Signed By:WANDA SINGLETON MD
--- NOTE | ~2021-07-16 | XR_ITS ---
EXAMINATION: XR CHEST CLINICAL INFORMATION: Chest pain COMPARISON: Previous chest x-ray most recent June 2020 TECHNIQUE: 2 views of the chest were obtained. FINDINGS: No significant abnormality is noted involving the heart, lungs, mediastinum, bony thorax or soft tissues. XR/XR chest 2V IMPRESSION: Unremarkable examination.
[2021-07-16 08:34] VITALS: BP 112/45; PULSE 75; RESP 18; TEMP 36.8; O2SAT 100; BMI 33.3
[2021-07-16 08:55] VITALS: BP 105/55; PULSE 62; RESP 13; TEMP 36.6; O2SAT 100
[2021-07-16 10:49] VITALS: BP 111/55; PULSE 83; RESP 12; O2SAT 100
[2021-07-16 11:06] VITALS: BP 83/36; PULSE 66
--- NOTE | 2021-07-16 11:07 | ED_ITS ---
HPI - Chest Pain General Chief Complaint: Chest Pain Stated Complaint: chest pain lightheaded Time Seen by Provider: 07/16/21 10:51 Source: patient Mode of arrival: ambulatory Limitations: no limitations History of Present Illness HPI narrative: Patient is a 36-year-old female with no significant past medical history. Patient presents emergency department for evaluation of left anterior chest pain. Onset was yesterday night while at work. Is described as a pressure sensation. This lasts for typically only a few seconds and then self resolves. In addition, she has been experiencing shortness of breath associated with the pain and nausea. She is also having a headache today that is associated with lightheadedness. She states it is consistent with her prior headaches, for which she usually takes Tylenol. Took Tylenol at 06:00 without significant relief. Denies fevers, chills, vision changes, presyncope/syncope, congestion, sore throat, cough, difficulty breathing, vomiting, abdominal pain, dysuria, urinary frequency, edema, generalized weakness. Related Data Previous Rx's Medication Instructions Recorded azithromycin 250 mg tablet See Rx Instructions PO .COMPLEX #6 02/08/21 tab Allergies Allergy/AdvReac Type Severity Reaction Status Date / Time penicillin V Allergy Unknown Rash Verified 07/16/21 08:34 Review of Systems Review of Systems: Constitutional : No Weight loss, No Fever, No Chills ENT/Mouth :? No sore throat, No Rhinorrhea Eyes: No Eye Pain, No Swelling Cardiovascular : pos Chest Pain, pos SOB, no Dyspnea on Exertion, No Orthopnea, No Edema, No Palpitations Respiratory : No Cough, No Sputum Gastrointestinal : pos Nausea, No Vomiting, No Diarrhea, No abdominal Pain, No Hematochezia, No Melena Genitourinary : No Dysuria, No Urinary Frequency Musculoskeletal : No joint pain, No Myalgias, No Joint Swelling Skin : No Skin Lesions, No rash Neuro : No Weakness, No Numbness, No Dizziness, No Headache Psych : No Anxiety/Panic, No Depression Heme/Lymph: No Bruising, No Lymphadenopathy Endocrine : No Polyuria, No Polydipsia Yes all other systems are reviewed and are negative [facility] Past Medical History Attestation statement: The following information was validated with the patient. Source: old records reviewed Medical History Arthritis Lower back pain Patient denies significant medical history Surgical History H/O tubal ligation History of appendectomy History of cholecystectomy Family History Family History Father No problems noted. Mother Diabetes Maternal Grandmother Breast cancer Diabetes Maternal Grandfather Past heart attack CVD (cardiovascular disease) Brother Brain cancer Maternal Uncle Colon cancer Social History Social History Alcohol intake: never Patient Tobacco Use Status: Never used Tobacco Use of substances other than those prescribed or required for medical reasons: No Advance Directives: No Advance Directives Information Provided: No Current occupational status: unemployed Current occupation: right handed Gender identity: Female Physical Exam Vital Signs: Vital Signs: Last Vital Signs Temp 97.8 F 07/16/21 08:55 Pulse 62 07/16/21 12:00 Resp 16 07/16/21 12:00 BP 104/48 L 07/16/21 12:00 Pulse Ox 99 07/16/21 12:00 BMI result Body Mass Index 33.3 Vital signs have been reviewed as normal and appeared to be correct. Blood pressure normal.? Heart rate normal.? Respiration rate normal. Temperature normal.? Oxygen saturation normal. Appearance: Alert.?Oriented to person, place and time. No acute distress.?Normal affect. Eyes: Pupils equal, round and reactive to light.? ENT: Pharynx normal.?? Neck: Normal inspection.? Neck supple.?? CVS: Heart sounds normal. Normal heart rate and rhythm.? Pulses normal.?? Respiratory: No respiratory distress.? Lung sounds clear to auscultation bilaterally?? Abdomen: Soft and non-tender. Normoactive bowel sounds. No pulsatile mass.?? Skin: Skin warm and dry.? Normal skin color.? Normal skin turgor.?? Extremities: No lower extremity edema.? No calf ttp? Neuro: Moves all extremities spontaneously. Sensation intact bilaterally. CN II- XII intact. No focal neuro deficits. Ambulates with normal steady gait. Course Course Course Narrative: Patient is a 36-year-old female being evaluated for chest pain. Will obtain CBC to evaluate for leukocytosis/ anemia, CMP and lipase to evaluate for abnormal electrolytes /abnormal renal function/ abnormal hepatic/biliary function, EKG and troponin to evaluate for ischemia/ACS. Chest x-ray to evaluate for consolidation/ infiltrate/ mass/ pulmonary congestion. D-Dimer to exclude pulmonary embolism. Given her lightheadedness although I suspect this is secondary to her headache will obtain orthostatic vital signs. Will provide Fioricet for headache. Currently not having chest pain at this time. History and physical exam are not consistent with AAA, aortic dissection, esophageal rupture. Reevaluation(s) Reevaluation #1: CBC and CMP overall unremarkable. Troponin <3.5, EKG reveals normal sinus rhythm, no acute concerns for ischemia, HEART score 0. therefore unlikely to be ACS. D-Dimer <150, Wells PE score 0, PERC negative, therefore unlikely to be PE. no orthostatic hypotension. COVID- 19 testing is negative. Chest x-ray is unremarkable. pain most consistent with atypical chest pain. Discussed all findings with patient. Discussed plan of care for discharge home and outpatient follow-up with her primary care provider, discussed reasons to return back to the emergency department, patient is agreeable with this plan MDM - Chest Pain Medical Records Data Attestation: I reviewed the patient's medical records. Lab Data Attestation: I reviewed the patient's lab results. Result diagrams: 07/16/21 12:04 07/16/21 12:04 Labs: Lab Results 07/16/21 07/16/21 07/16/21 Range/Units 12:03 12:04 12:04 WBC 7.1 (4.8-10.8) X10*3/uL RBC 4.88 (4.20-5.50) X10*6/uL Hgb 14.0 (12.0-16.0) g/dl Hct 42.8 (37.0-47.0) % MCV 87.7 (80.0-98.0) fL MCH 28.7 (27.0-33.0) pg MCHC 32.7 (31.0-35.0) g/dl RDW 11.9 (11.0-16.0) % Plt Count 293 (160-400) X10*3/uL MPV 9.8 (9.4-12.3) fL Immature Gran % (Auto) 0.3 (0.0-0.4) % Neut % (Auto) 64.2 (45-73) % Lymph % (Auto) 30.5 (20-40) % Morton % (Auto) 3.8 (2-11) % Eos % (Auto) 0.9 (0-4) % Baso % (Auto) 0.3 (0-2) % Lymph # (Auto) 2.2 (1.2-4.9) X10*3/uL Morton # (Auto) 0.3 (0.1-1.2) X10*3/uL Eos # (Auto) 0.1 (0.0-0.4) X10*3/uL Baso # (Auto) 0.0 (0.0-0.2) X10*3/uL Abs Immat Gran (auto) 0.02 (0.00-0.03) X10*3/uL Absolute Neuts (auto) 4.5 (2.0-8.3) x10*3/uL Absolute Nucleated RBC 0.000 (0.0-0.012) X10*3/uL Nucleated RBC % (auto) 0.0 (0.0-0.2) /100WBC PT (9.9-13.0) SEC INR (0.9-1.1) D-Dimer High Sensitivty NG/ML Sodium 142 (135-145) mmol/L Potassium 4.1 (3.3-5.1) mmol/L Chloride 108 (96-108) mmol/L Carbon Dioxide 29 (22-29) mmol/L Anion Gap 9 L (12-20) BUN 15 (9-16) mg/dL Creatinine 0.68 (0.5-1.4) mg/dL Estim Creat Clear Calc 114.9 Estimated GFR > 60 Random Glucose 85 (60-115) mg/dL Calcium 9.6 D (8.4-10.2) mg/dL Total Bilirubin (0.0-1.0) mg/dL Direct Bilirubin (0.0-0.5) mg/dL AST (5-31) U/L ALT (0-31) U/L Alkaline Phosphatase (39-117) U/L Troponin I High Sens (<3.5-17.0) ng/L Total Protein (6.5-8.0) g/dL Albumin (3.5-5.0) g/dL COVID-19 (MIS) Negative (Negative) COVID-19 Clin Com See Note 07/16/21 07/16/21 07/16/21 Range/Units 12:04 12:04 12:04 WBC (4.8-10.8) X10*3/uL RBC (4.20-5.50) X10*6/uL Hgb (12.0-16.0) g/dl Hct (37.0-47.0) % MCV (80.0-98.0) fL MCH (27.0-33.0) pg MCHC (31.0-35.0) g/dl RDW (11.0-16.0) % Plt Count (160-400) X10*3/uL MPV (9.4-12.3) fL Immature Gran % (Auto) (0.0-0.4) % Neut % (Auto) (45-73) % Lymph % (Auto) (20-40) % Morton % (Auto) (2-11) % Eos % (Auto) (0-4) % Baso % (Auto) (0-2) % Lymph # (Auto) (1.2-4.9) X10*3/uL Morton # (Auto) (0.1-1.2) X10*3/uL Eos # (Auto) (0.0-0.4) X10*3/uL Baso # (Auto) (0.0-0.2) X10*3/uL Abs Immat Gran (auto) (0.00-0.03) X10*3/uL Absolute Neuts (auto) (2.0-8.3) x10*3/uL Absolute Nucleated RBC (0.0-0.012) X10*3/uL Nucleated RBC % (auto) (0.0-0.2) /100WBC PT 11.2 (9.9-13.0) SEC INR 1.0 (0.9-1.1) D-Dimer High Sensitivty < 150 NG/ML Sodium (135-145) mmol/L Potassium (3.3-5.1) mmol/L Chloride (96-108) mmol/L Carbon Dioxide (22-29) mmol/L Anion Gap (12-20) BUN (9-16) mg/dL Creatinine (0.5-1.4) mg/dL Estim Creat Clear Calc Estimated GFR Random Glucose (60-115) mg/dL Calcium (8.4-10.2) mg/dL Total Bilirubin 0.6 (0.0-1.0) mg/dL Direct Bilirubin 0.2 (0.0-0.5) mg/dL AST 21 (5-31) U/L ALT 36 H (0-31) U/L Alkaline Phosphatase 53 (39-117) U/L Troponin I High Sens < 3.5 (<3.5-17.0) ng/L Total Protein 7.0 (6.5-8.0) g/dL Albumin 3.8 (3.5-5.0) g/dL COVID-19 (MIS) (Negative) COVID-19 Clin Com Imaging Data Chest x-ray: Radiologist's impression: FINDINGS: No significant abnormality is noted involving the heart, lungs, mediastinum, bony thorax or soft tissues. XR/XR chest 2V IMPRESSION: Unremarkable examination. ECG Data ECG #1: Attestation: I personally reviewed and interpreted this ECG as follows: ECG interpretation date: 07/16/21 ECG interpretation time: 12:37 Prior ECG tracings: available for review Interpretation: Rate: 61 Rhythm:? normal sinus rhythm [place]ck[place]:? normal Normal P waves.? Normal KENNEDI.?? Normal QRS complex.?? ST T wave :?? no ST elevation, no ST depression, no T-wave inversion qTC: 412 prior studies:? October 2019 The study has been interpreted contemporaneously by me. Discharge Plan Discharge Clinical Impression: Atypical chest pain Patient Disposition: Home, Self-Care Instructions: Noncardiac Chest Pain (ED) Additional Instructions: You were evaluated in the emergency department for chest pain. Your EKG and heart markers were normal, your D- dimer was normal therefore this is unlikely to be a blood clot in the lungs. Your chest x-ray was also normal, no sign of pneumonia or fluid buildup. At this time the cause of your pain you experienced previously is unknown. You should contact your primary care provider to sched ule a follow-up appointment in 1-3 days. You may return to the emergency department with any new or worsening symptoms or concerns, this might include worsening chest pain, shortness of breath, difficulty breathing, dizziness, passing out, nausea persistent vomiting, severe abdominal pain, fevers, chills. Prescriptions: No Action azithromycin 250 mg tablet See Rx Instructions PO .COMPLEX Qty: 6 0RF Rx Instructions: take 500 mg today (day 1), then 250 mg for 4 days (days 2-5) PO Stand Alone Forms: Work/School Release Interventions: ED Discharge Assessment Last Done: 07/16/21 13:12 Discharge Date/Time: 07/16/21 13:12
[2021-07-16 11:46] VITALS: BP 108/64; BP 99/42; PULSE 66; PULSE 84
[2021-07-16 12:00] VITALS: BP 104/48; PULSE 62; RESP 16; O2SAT 99
[2021-07-16 12:09] LABS: MANUAL DIFF FLAG NO
[2021-07-16 12:17] LABS: Basophils Percent Auto 0.3 % (0-2); Eosinophils Absolute Auto 0.1 X10*3/uL (0.0-0.4); Eosinophils Percent Auto 0.9 % (0-4); Hematocrit 42.8 % (37.0-47.0); Imm Gran Abs Auto 0.02 X10*3/uL (0.00-0.03); Imm Gran Pct Auto 0.3 % (0.0-0.4); Lymphocytes Absolute Auto 2.2 X10*3/uL (1.2-4.9); Lymphocytes Percent Auto 30.5 % (20-40); Mean Corpuscular HGB Conc 32.7 g/dl (31.0-35.0); Mean Corpuscular Hemoglobin 28.7 pg (27.0-33.0); Mean Corpuscular Volume 87.7 fL (80.0-98.0); Mean Platelet Volume 9.8 fL (9.4-12.3); Monocytes Absolute Auto 0.3 X10*3/uL (0.1-1.2); Monocytes Percent Auto 3.8 % (2-11); Neutrophils Absolute Auto 4.5 x10*3/uL (2.0-8.3); Neutrophils Percent Auto 64.2 % (45-73); Platelet Count 293 X10*3/uL (160-400); Prothrombin Time 11.2 SEC (9.9-13.0); Red Blood Count 4.88 X10*6/uL (4.20-5.50); Red Cell Distribution Width 11.9 % (11.0-16.0); White Blood Count 7.1 X10*3/uL (4.8-10.8)
[2021-07-16 12:20] LABS: D Dimer High Sensitivity < 150 NG/ML
[2021-07-16 12:24] LABS: COVID-19 Test Negative (Negative); IDNOW Serial# 16C4AD1C
[2021-07-16 12:28] LABS: Anion Gap 9 (12-20); Blood Urea Nitrogen 15 mg/dL (9-16); Calcium 9.6 mg/dL (8.4-10.2); Carbon Dioxide 29 mmol/L (22-29); Chloride 108 mmol/L (96-108); Creatinine Clr Calc Pharmacy 114.9; Estimated Glomerular Filt Rate > 60; Glucose Random 85 mg/dL (60-115); Potassium 4.1 mmol/L (3.3-5.1); Sodium 142 mmol/L (135-145)
[2021-07-16 12:29] LABS: Alanine Aminotransferase 36 U/L (0-31); Albumin Level 3.8 g/dL (3.5-5.0); Alkaline Phosphatase 53 U/L (39-117); Aspartate Amino Transferase 21 U/L (5-31); Bilirubin Direct 0.2 mg/dL (0.0-0.5); Bilirubin Total 0.6 mg/dL (0.0-1.0)
[2021-07-16] MEDS: Butalb/Acetamin/Caff 50/325/40 TABLET 1 TAB PO (12:30)
[2021-07-16 12:36] LABS: Troponin-I High Sensitivity < 3.5 ng/L (<3.5-17.0)
== END 2021-07-16 13:12 | disposition home or self-care (01) ==
PROVIDERS: Nurse Practitioner Family; Emergency Provider Emergency Medicine; PCP Internal Medicine
DX: R07.89 Other chest pain (principal); Z20.822 Contact with and (suspected) exposure to COVID-19
CPT/HCPCS: 36415; 71046; 80048; 80076; 84484; 85025; 85379; 85610; 87635; 93005; 99283; 99285

== ENCOUNTER 2021-09-21 08:29 | Emergency (ER) | payer OTHER, SELFPAY ==
--- NOTE | 2021-09-21 09:22 | ED_ITS ---
HPI - URI/Sore Throat General Chief Complaint: Upper Respiratory Symptoms Stated Complaint: sore throat Time Seen by Provider: 09/21/21 08:45 Source: patient Mode of arrival: ambulatory Limitations: no limitations History of Present Illness HPI Narrative: 36-year-old female with a past history of anxiety, sinusitis, seasonal allergies, low back pain, and fracture of her 5th metacarpal, presents for 3 days of sore throat, stuffy nose, burning eyes, cough, and a sensation of burning in her chest. She has been taking allergy pills and using Flonase. States it feels like seasonal allergies, but she has also been in contact with her [id number] who recently tested positive for COVID She is able to swallow fluids, swallowing food is painful, but she is able to eat No trismus, no voice changes, no drooling, no recent dental instrumentation No fevers, no body aches, no nausea, vomiting, diarrhea. No chest pain, no shortness of breath. Patient has had 2 COVID vaccinations and 1 booster MD elicited complaint: cough, sore throat and nasal congestion Pertinent past history: sinusitis and seasonal allergies Onset (ago): day(s) (3) Consistency: constant Severity: moderate Description of mucous: clear Able to tolerate fluids by mouth: Yes Exacerbating factors: swallowing Relieving factors: nothing Associated symptoms: nasal congestion, sore throat and cough Treatments prior to arrival: none Related Data Previous Rx's Medication Instructions Recorded acetaminophen 500 mg tablet 500 - 1,000 mg PO Q6H PRN #30 tab 09/10/21 fexofenadine 60 mg tablet (Asha 60 mg PO BID #60 tab 09/10/21 Allergy) fluticasone propionate 50 2 spray INTRANASAL DAILY PRN #16 g 09/10/21 mcg/actuation nasal spray,suspension (Flonase Allergy Relief) naproxen 500 mg tablet 500 mg PO BID PRN #20 tab 09/10/21 cetirizine 10 mg tablet 10 mg PO DAILY #14 tab 09/21/21 Allergies Allergy/AdvReac Type Severity Reaction Status Date / Time penicillin V Allergy Unknown Rash Verified 09/10/21 15:12 Review of Systems Constitutional: Constitutional: Denies body ache(s), Denies chills, Reports fatigue, Denies fever(s), Denies headache(s), Denies malaise and Denies weakness Eyes: Eyes: Denies diplopia ENT: Denies vertigo, Denies dizziness, Denies otalgia, Denies headache(s), Denies mouth pain, Reports nasal congestion, Denies post nasal drip, Denies sinus pain, Denies sinus pressure, Reports sore throat and Denies throat swelling Cardiovascular: Cardiovascular: Denies chest pain, Denies syncope, Denies leg edema, Denies lightheadedness, Denies Loss of Consciousness, Denies palpitations and Denies dyspnea Respiratory: Respiratory: Reports chest congestion, Reports cough and Denies dyspnea Gastrointestinal: Gastrointestinal: Denies abdominal pain, Denies hematochezia, Denies constipation, Denies diarrhea, Denies nausea and Denies vomiting Musculoskeletal: Musculoskeletal: Reports no additional musculoskeletal complaints and Denies myalgias Neurologic: Denies confusion, Denies vertigo, Denies dizziness, Denies syncope, Denies headache(s) and Denies weakness Psychiatric: Psychiatric: Denies anxiety, Denies confusion and Denies depression Endocrine: Endocrine: Reports fatigue and Denies palpitations Allergic/Immunologic: Allergic/Immunologic: Denies throat swelling PMFSH Past Medical History Medical History Arthritis Lower back pain Patient denies significant medical history Surgical History H/O tubal ligation History of appendectomy History of cholecystectomy Family History Family History (Updated 09/10/21 @ 14:56 by JORDI Moseley) Father No problems noted. Mother Diabetes Maternal Grandmother Breast cancer Diabetes Maternal Grandfather Past heart attack CVD (cardiovascular disease) Brother Brain cancer Maternal Uncle Colon cancer Social History Social History Housing: House Alcohol intake: never Patient Tobacco Use Status: Never used Tobacco e-Cigarette/Vaping Use: Never Used Second Hand Smoke Exposure: No Advance Directives: No Advance Directives Information Provided: Yes service: No Current occupational status: employed Current occupation: [employer] Gender identity: Female Cognitive needs: No Hearing needs: No Vision needs: Yes (glasses) Physical Exam Vital Signs: Vital Signs: Last Vital Signs Temp 96.3 F L 09/21/21 10:27 Pulse 62 09/21/21 10:27 Resp 16 09/21/21 10:27 BP 129/57 L 09/21/21 10:27 Pulse Ox 99 09/21/21 10:27 BMI result Body Mass Index 36.0 Const: General: No confusion Nutritional Appearance: well nourished Orientation/consciousness: No confusion Limitations: no limitations HEENT: Head: Yes normal to inspection, Yes normocephalic and Yes atraumatic Ears: hearing grossly normal bilaterally, external ears normal, TM's normal bilaterally and EAC's normal General nose exam: Normal external nose present Face and sinus: Yes normal facial exam and Yes sinuses nontender Mouth: Normal oral and palatal mucosa present and moist mucous membranes Throat: Yes postnasal drainage Eyes: Conjunctivae: conjunctival abnormal bilateral conjunctival injection (mild) diffuse Pupils: Equal, round and reactive pupils present EOM: EOMs intact bilaterally Neck: Neck: Yes full ROM, Yes no lymphadenopathy and Yes supple Resp: Effort & Inspection: normal respiratory effort and able to speak in complete sentences Auscultation: clear to auscultation bilaterally, no crackles, no rales, no rhonchi and no wheezes Cardio: Rate: regular rate Rhythm: regular rhythm Heart sounds: S1 normal heart sound present and S2 normal heart sound present GI: Inspection: Yes normal to inspection Palpation (GI): Soft to palpation, nontender, no guarding and not rigid Percussion: Yes normal to percussion Auscultation: normal bowel sounds Skin: General skin exam: no rashes or lesions noted Neuro: General: No confusion Cranial nerves: Yes Equal, round and reactive pupils present Extrem: General: Yes normal to inspection and Yes full ROM Psych: Appearance: grossly normal Affect: normal affect Attitude: cooperative Thought process: Normal thought process present Course Course Course Narrative: 46-year-old female with seasonal allergies presents for 3 days of sore throat, nasal congestion, burning itching eyes, after a COVID exposure recently Reevaluation(s) Reevaluation #1: Covid and flu negative, strep negative This looks like seasonal allergies, counseled Neti pot, prescribed Zyrtec, patient will follow-up with her primary care provider, return precautions given, patient stable for discharge home with supportive care MDM - URI/Sore Throat Lab Data Labs: Lab Results 09/21/21 09/21/21 09/21/21 Range/Units 09:14 09:14 09:14 COVID-19 (MIS) Negative (Negative) COVID-19 Clin Com See Note Influenza Type A (CYNDI) Negative (Negative) Influenza Type B (CYNDI) Negative (Negative) Influenza A & B Note See Note S. pyogenes GrpA CYNDI Negative (Negative) Discharge Plan Discharge Clinical Impression: Seasonal allergic reaction Patient Disposition: Home, Self-Care Additional Instructions: Please follow-up with your primary care provider tomorrow. Please discuss with them symptom treatment for your seasonal allergies. Urine negative for strep, COVID, and flu today. Please try the Aydin Med sinus rinses we discussed, unfortunately I cannot prescribe this for you. I have however prescribe some Zyrtec for you. Your primary care provider may want to change or extend this prescription. Please discuss with your primary care provider that the Asha is not working for you. You should not be on both Asha and Zyrtec Please return to emergency room for any new or concerning symptoms. Prescriptions: New cetirizine 10 mg tablet 10 mg PO DAILY Qty: 14 0RF No Action naproxen 500 mg tablet 500 mg PO BID PRN (Reason: pain) Qty: 20 0RF acetaminophen 500 mg tablet 500 - 1,000 mg PO Q6H PRN (Reason: pain) Qty: 30 0RF fexofenadine [Asha Allergy] 60 mg tablet 60 mg PO BID Qty: 60 0RF fluticasone propionate [Flonase Allergy Relief] 50 mcg/actuation spray,suspension 2 spray intranasal DAILY PRN (Reason: allergy symptoms) Qty: 16 0RF Rx Instructions: administer into each nostril Stand Alone Forms: Work/School Release Interventions: ED Discharge Assessment Last Done: 09/21/21 11:04 Discharge Date/Time: 09/21/21 11:05
[2021-09-21 09:37] LABS: COVID-19 Test Negative (Negative); IDNOW Serial# 16C4AD1C; Influenza A Negative (Negative); Influenza B2 Negative (Negative)
[2021-09-21 10:22] LABS: Strep A Nucleic Acid Negative (Negative)
[2021-09-21 10:27] VITALS: BP 129/57; PULSE 62; RESP 16; TEMP 35.7; O2SAT 99; BMI 36.0
[2021-09-21] MEDS: Acetaminophen 325 MG TABLET 650 MG PO (10:30)
== END 2021-09-21 11:05 | disposition home or self-care (01) ==
PROVIDERS: Physician Assistant; Emergency Provider Emergency Medicine; PCP Internal Medicine
DX: J02.9 Acute pharyngitis, unspecified (principal); M54.50 Low back pain, unspecified; R05.9 Cough, unspecified; Z20.822 Contact with and (suspected) exposure to COVID-19; Z79.899 Other long term (current) drug therapy
CPT/HCPCS: 87502; 87635; 87651; 99283

== ENCOUNTER 2021-10-07 14:17 | Outpatient (REF) | payer OTHER, SELFPAY ==
[2021-10-07 14:47] LABS: Binax Internal Control QC Valid; Binax Now Covid-19 Ag Negative (Negative)
== END 2021-10-07 14:18 | disposition home or self-care (01) ==
LOC: HO.HMGCLDS 14:17
PROVIDERS: PCP Internal Medicine
DX: Z20.822 Contact with and (suspected) exposure to COVID-19 (principal); R51.9 Headache, unspecified
CPT/HCPCS: 87811; C9803

== ENCOUNTER 2022-07-17 08:37 | Emergency (ER) | payer OTHER, SELFPAY ==
[2022-07-17 08:47] VITALS: BP 102/54; PULSE 67; RESP 16; TEMP 36.3; O2SAT 97; BMI 36.0
[2022-07-17] MEDS: Cyclobenzaprine HCl 10 MG TABLET PO (09:32)
[2022-07-17] MEDS: Ketorolac Tromethamine 30 MG/ML VIAL IM (09:33)
--- NOTE | 2022-07-17 09:49 | ED.BACK ---
HPI - Back Pain/Injury General Chief Complaint: Back Pain/Injury Stated Complaint: Lower back pain/Leg pain Time Seen by Provider: 07/17/22 09:07 Source: patient Mode of arrival: ambulatory History of Present Illness HPI Narrative: 37-year-old female with a past medical history arthritis, low back pain, presenting to the ED complaining of low back pain radiating down bilateral lower extremities since yesterday. Denies known injury/trauma or fall. Denies numbness, tingling, weakness, urinary incontinence/retention, hematuria/dysuria MD elicited complaint: back pain Onset (ago): day(s) Related Data Previous Rx's Medication Instructions Recorded acetaminophen 500 mg tablet 500 - 1,000 mg PO Q6H PRN pain #30 09/10/21 tabs fexofenadine 60 mg tablet (Asha 60 mg PO BID #60 tabs 09/10/21 Allergy) fluticasone propionate 50 2 spray intranasal DAILY PRN 09/10/21 mcg/actuation nasal allergy symptoms #16 grams spray,suspension (Flonase Allergy Relief) naproxen 500 mg tablet 500 mg PO BID PRN pain #20 tabs 09/10/21 cetirizine 10 mg tablet 10 mg PO DAILY #14 tabs 09/21/21 tramadol 50 mg tablet 50 mg PO TID PRN pain #14 tabs 10/07/21 acetaminophen 500 mg tablet 500 mg PO Q6H PRN fever or pain 07/17/22 (Tylenol Extra Strength) #14 tabs cyclobenzaprine 5 mg tablet 5 mg PO Q8H PRN pain (scale score 07/17/22 7-10) 5 days #14 tabs lidocaine 5 % topical patch 1 patch topical DAILY PRN pain #30 07/17/22 (Lidoderm) ea naproxen 500 mg tablet 500 mg PO BID PRN pain 10 days #20 07/17/22 tabs Allergies Allergy/AdvReac Type Severity Reaction Status Date / Time penicillin V Allergy Unknown Rash Verified 07/17/22 08:49 Review of Systems Review of Systems: Constitutional: No Fever, No Chills ENT/Mouth: No Ear Pain, No Nasal Congestion, No Sinus Pain, No Hoarseness, No sore throat, No Rhinorrhea, No Swallowing Difficulty Cardiovascular: No Chest Pain, No SOB Respiratory: No Cough, No Sputum, No Wheezing Gastrointestinal: No Nausea, No Vomiting, No Diarrhea, No Constipation, No Abdominal pain Genitourinary: No Dysuria, No Urinary Frequency, No Hematuria, No Urinary Incontinence/retention, No Urgency, No Flank Pain Musculoskeletal: + joint pain, No Myalgias, No Joint Swelling Skin: No Skin Lesions, No rash Neuro: No Weakness, No Numbness, No Paresthesias Yes all other systems are reviewed and are negative Constitutional: Constitutional: Reports as per [facility] Past Medical History Attestation statement: The following information was validated with the patient. Medical History Arthritis Lower back pain Patient denies significant medical history Surgical History H/O tubal ligation History of appendectomy History of cholecystectomy Family History Family History Father No problems noted. Mother Diabetes Maternal Grandmother Breast cancer Diabetes Maternal Grandfather Past heart attack CVD (cardiovascular disease) Brother Brain cancer Maternal Uncle Colon cancer Social History Social History Housing: House Alcohol intake: never Patient Tobacco Use Status: Never used Tobacco e-Cigarette/Vaping Use: Never Used Second Hand Smoke Exposure: No Advance Directives: No Advance Directives Information Provided: No service: No Current occupational status: employed Current occupation: [employer] Gender identity: Female Cognitive needs: No Hearing needs: No Vision needs: Yes (glasses) Physical Exam Vital Signs: Vital Signs: Last Vital Signs Temp 97.3 F 07/17/22 08:47 Pulse 67 07/17/22 08:47 Resp 16 07/17/22 08:47 BP 102/54 L 07/17/22 08:47 Pulse Ox 97 07/17/22 08:47 O2 Del Method 07/17/22 08:47 BMI result Body Mass Index 36.0 Const: General: cooperative, healthy appearing and no acute distress Orientation/consciousness: patient oriented x3 Limitations: no limitations HEENT: Head: Yes normal to inspection and Yes atraumatic Ears: hearing grossly normal bilaterally General nose exam: Normal external nose present Face and sinus: Yes normal facial exam Eyes: General: appearance normal, both eyes and all related structures EOM: EOMs intact bilaterally Neck: Neck: Yes normal visual inspection and Yes no meningeal signs Resp: Effort & Inspection: normal respiratory effort and no respiratory distress Cardio: Rate: regular rate GI: Inspection: Yes normal to inspection Palpation (GI): Soft to palpation, nontender, no guarding and not rigid : General: Yes no CVA tenderness Back/Spine/Pelvis: Other: No midline thoracic/lumbar spinous tenderness/step-off or deformity. + bilateral lumbar paraspinal and MSK tenderness to palpation reproducing subjective complaint Back: no CVA tenderness Skin: Rashes: no rashes Wounds: no wounds Neuro: Other: Strength intact throughout. No saddle anesthesia. Sensation intact to light touch. Neurovascular intact distally General: patient oriented x3, tone normal and no meningeal signs Gait exam (Neuro): Normal gait present Extrem: General: Yes normal to inspection Medications Administered Discontinued Medications Generic Name Dose Route Start Last Admin Trade Name Freq PRN Reason Stop Dose Admin Cyclobenzaprine HCl 10 mg 07/17/22 09:24 07/17/22 09:32 Cyclobenzaprine Hcl 10 Mg Tablet PO 07/17/22 09:25 10 mg ONCE ONE Administration Ketorolac Tromethamine 30 mg 07/17/22 09:24 07/17/22 09:33 Ketorolac Tromethamine 30 Mg/Ml Vial IM 07/17/22 09:25 30 mg ONCE ONE Administration Medical Decision Making Medical Decision Making MDM Narrative: 37-year-old female with a past medical history arthritis, low back pain, presenting to the ED complaining of low back pain radiating down bilateral lower extremities since yesterday. On exam vital signs stable, NAD nontoxic appearing physical above. No midline spinous tenderness red symptoms. Concern sciatica versus MSK pain/spasming/strain. Low suspicion for renal stone/pyelo, cauda equina/cord compression or epidural abscess Plan: Pain control, PCP follow-up Results discussed with patient including worrisome signs and symptoms and strict return precautions, and when to return to the emergency department. They verbalized understanding and feel safe for discharge at this time. Differential Diagnosis Differential Diagnoses: The differential diagnosis associated with the presentation includes As above Prescription Management I considered prescription management with: Pain Medication Discharge Plan Discharge Clinical Impression: Low back pain with bilateral sciatica Patient Disposition: Home, Self-Care Instructions: Acute Low Back Pain (ED) Additional Instructions: Your pain is likely musculoskeletal Flexeril is a muscle relaxer, take at night as it makes you drowsy, do not drive, drink alcohol, or operate machinery while taking it Naproxen as an anti-inflammatory / pain medication, take with food Lidoderm patches are numbing patches, apply to painful area In addition take Tylenol at home If symptoms persist or worsen, pain becomes unbearable, you developed urinary retention or incontinence, or weakness return to the ED Prescriptions: New acetaminophen [Tylenol Extra Strength] 500 mg tablet 500 mg PO Q6H PRN (Reason: fever or pain) Qty: 14 0RF lidocaine [Lidoderm] 5 % adhesive patch,medicated 1 patch topical DAILY MDD remove after 12 hours PRN (Reason: pain) Qty: 30 0RF Rx Instructions: leave on most painful area for up to 12 hrs naproxen 500 mg tablet 500 mg PO BID PRN (Reason: pain) 10 Days Qty: 20 0RF cyclobenzaprine 5 mg tablet 5 mg PO Q8H PRN (Reason: pain (scale score 7-10)) 5 Days Qty: 14 0RF No Action cetirizine 10 mg tablet 10 mg PO DAILY Qty: 14 0RF naproxen 500 mg tablet 500 mg PO BID PRN (Reason: pain) Qty: 20 0RF acetaminophen 500 mg tablet 500 - 1,000 mg PO Q6H PRN (Reason: pain) Qty: 30 0RF fexofenadine [Asha Allergy] 60 mg tablet 60 mg PO BID Qty: 60 0RF fluticasone propionate [Flonase Allergy Relief] 50 mcg/actuation spray,suspension 2 spray intranasal DAILY PRN (Reason: allergy symptoms) Qty: 16 0RF Rx Instructions: administer into each nostril tramadol 50 mg tablet 50 mg PO TID PRN (Reason: pain) Qty: 14 0RF Referrals: Lalitha Nichols MD [Primary Care Provider] - 1 week
== END 2022-07-17 09:58 | disposition home or self-care (01) ==
PROVIDERS: Emergency Provider Student in an Organized Health Care Education/Training Program; PCP Internal Medicine
DX: M54.41 Lumbago with sciatica, right side (principal); M54.42 Lumbago with sciatica, left side; Z79.899 Other long term (current) drug therapy
CPT/HCPCS: 96372; 99283; 99284; J1885

== ENCOUNTER 2022-08-11 14:35 | Outpatient (REF) | payer OTHER, SELFPAY | END 2022-08-11 14:36 | disposition home or self-care (01) | LOC: HO.LNP 14:35 | PROVIDERS: Visit Provider Nurse Practitioner Family | DX: R30.0 Dysuria (principal) | CPT/HCPCS: 87086; 87088; 87186 ==

== ENCOUNTER 2022-12-24 08:23 | Outpatient (REF) | payer OTHER, SELFPAY ==
[2022-12-24 08:39] LABS: MANUAL DIFF FLAG NO
[2022-12-24 09:03] LABS: Basophils Percent Auto 0.3 % (0-2); Eosinophils Absolute Auto 0.1 X10*3/uL (0.0-0.4); Eosinophils Percent Auto 0.9 % (0-4); Hematocrit 43.7 % (37.0-47.0); Hemoglobin 14.5 g/dl (12.0-16.0); Imm Gran Abs Auto 0.04 X10*3/uL (0.00-0.03); Imm Gran Pct Auto 0.4 % (0.0-0.4); Lymphocytes Absolute Auto 2.4 X10*3/uL (1.2-4.9); Lymphocytes Percent Auto 26.2 % (20-40); Mean Corpuscular HGB Conc 33.2 g/dl (31.0-35.0); Mean Corpuscular Volume 87.4 fL (80.0-98.0); Mean Platelet Volume 9.8 fL (9.4-12.3); Monocytes Absolute Auto 0.4 X10*3/uL (0.1-1.2); Monocytes Percent Auto 4.1 % (2-11); Neutrophils Absolute Auto 6.2 x10*3/uL (2.0-8.3); Neutrophils Percent Auto 68.1 % (45-73); Platelet Count 282 X10*3/uL (160-400); White Blood Count 9.1 X10*3/uL (4.8-10.8)
[2022-12-24 09:29] LABS: Rheumatoid Factor < 13.0 IU/mL (<15.0)
[2022-12-24 09:41] LABS: Alanine Aminotransferase 34 U/L (0-31); Albumin Level 3.7 g/dL (3.5-5.0); Alkaline Phosphatase 75 U/L (39-117); Anion Gap 12 (12-20); Aspartate Amino Transferase 24 U/L (5-31); Bilirubin Total 0.2 mg/dL (0.0-1.0); Blood Urea Nitrogen 16 mg/dL (9-16); Calcium 9.2 mg/dL (8.4-10.2); Carbon Dioxide 26 mmol/L (22-29); Chloride 108 mmol/L (96-108); Cholesterol 213 mg/dL; Estimated Glomerular Filt Rate > 60; Glucose Fasting 91 mg/dL (60-99); HDL Cholesterol 41 mg/dL; LDL Cholesterol Calculated 130 mg/dl; Potassium 3.9 mmol/L (3.3-5.1); Sodium 142 mmol/L (135-145); Total Protein 7.5 g/dL (6.5-8.0); Triglycerides 210 mg/dL
[2022-12-24 09:49] LABS: Vitamin D 25-OH Total 24.1 ng/mL (>30)
[2022-12-24 09:51] LABS: Erythrocyte Sedimentation Rate 13 MM/HR (0-20)
[2022-12-28 15:24] LABS: Anti Nuclear Antibody Screen NEGATIVE (NEGATIVE)
== END 2022-12-24 08:24 | disposition home or self-care (01) ==
LOC: HO.LAB 08:23
PROVIDERS: PCP Internal Medicine; Visit Provider Internal Medicine
DX: E55.9 Vitamin D deficiency, unspecified (principal); M25.50 Pain in unspecified joint; D64.9 Anemia, unspecified; Z00.00 Encounter for general adult medical examination without abnormal findings
CPT/HCPCS: 36415; 80053; 80061; 82306; 85025; 85652; 86038; 86431

== ENCOUNTER 2022-12-30 08:47 | Outpatient (REF) | payer OTHER, SELFPAY ==
--- NOTE | ~2022-12-30 | XR_ITS ---
X-RAY BILATERAL SHOULDERS CLINICAL HISTORY: Pain. COMPARISON: Radiograph left shoulder 09/22/2018. TECHNIQUE: 4 views of each shoulder were obtained. FINDINGS: No acute fractures or subluxation. No significant degenerative changes. No abnormal soft tissue calcifications. No unexpected radiopaque foreign bodies. XR/XR shoulder RT min 2V IMPRESSION: No significant radiographic abnormality to explain the patient's pain.
--- NOTE | ~2022-12-30 | XR_ITS ---
X-RAY BILATERAL SHOULDERS CLINICAL HISTORY: Pain. COMPARISON: Radiograph left shoulder 09/22/2018. TECHNIQUE: 4 views of each shoulder were obtained. FINDINGS: No acute fractures or subluxation. No significant degenerative changes. No abnormal soft tissue calcifications. No unexpected radiopaque foreign bodies. XR/XR shoulder LT min 2V IMPRESSION: No significant radiographic abnormality to explain the patient's pain.
--- NOTE | ~2022-12-30 | XR_ITS ---
X-RAY BILATERAL WRISTS/HANDS CLINICAL HISTORY: Pain. COMPARISON: Radiograph of the left hand 11/04/2020. Radiograph of the left wrist 12/02/2020. TECHNIQUE: 4 views of each wrist/hand. FINDINGS: Right wrist/hand: No fractures or malalignment. No joint space narrowing or marginal osteophytes. No osseous erosion. No abnormal soft tissue calcification. Left wrist/hand: Healed fracture base of the fifth metacarpal. No acute fractures or subluxation. No joint space narrowing or marginal osteophytes. No osseous erosion. No abnormal soft tissue calcifications. Stable metallic foreign body in the dorsal soft tissues of the second middle phalanx. XR/XR hand wrist LT IMPRESSION: 1. Stable metallic foreign body in the dorsal soft tissues of the second left middle phalanx. 2. No acute fractures or malalignment. 3. No significant degenerative changes or radiographic findings to suspect inflammatory osteoarthritis.
--- NOTE | ~2022-12-30 | XR_ITS ---
X-RAY BILATERAL FEET CLINICAL HISTORY: Pain. COMPARISON: No similar priors. TECHNIQUE: 3 views of each foot were obtained. FINDINGS: No acute fractures or subluxation. Very mild multifocal bilateral joint space narrowing with minimal subcortical sclerosis. No significant marginal osteophytes. No erosive osseous changes. No abnormal soft tissue calcifications. Minor bilateral dorsal and plantar calcaneal spurs. XR/XR foot LT min 3V IMPRESSION: 1. No acute fractures or subluxation. 2. Very mild bilateral degenerative osteoarthritis. 3. Minor bilateral dorsal and plantar calcaneal spurs.
--- NOTE | ~2022-12-30 | XR_ITS ---
X-RAY BILATERAL WRISTS/HANDS CLINICAL HISTORY: Pain. COMPARISON: Radiograph of the left hand 11/04/2020. Radiograph of the left wrist 12/02/2020. TECHNIQUE: 4 views of each wrist/hand. FINDINGS: Right wrist/hand: No fractures or malalignment. No joint space narrowing or marginal osteophytes. No osseous erosion. No abnormal soft tissue calcification. Left wrist/hand: Healed fracture base of the fifth metacarpal. No acute fractures or subluxation. No joint space narrowing or marginal osteophytes. No osseous erosion. No abnormal soft tissue calcifications. Stable metallic foreign body in the dorsal soft tissues of the second middle phalanx. XR/XR hand wrist RT IMPRESSION: 1. Stable metallic foreign body in the dorsal soft tissues of the second left middle phalanx. 2. No acute fractures or malalignment. 3. No significant degenerative changes or radiographic findings to suspect inflammatory osteoarthritis.
--- NOTE | ~2022-12-30 | XR_ITS ---
X-RAY BILATERAL FEET CLINICAL HISTORY: Pain. COMPARISON: No similar priors. TECHNIQUE: 3 views of each foot were obtained. FINDINGS: No acute fractures or subluxation. Very mild multifocal bilateral joint space narrowing with minimal subcortical sclerosis. No significant marginal osteophytes. No erosive osseous changes. No abnormal soft tissue calcifications. Minor bilateral dorsal and plantar calcaneal spurs. XR/XR foot RT min 3V IMPRESSION: 1. No acute fractures or subluxation. 2. Very mild bilateral degenerative osteoarthritis. 3. Minor bilateral dorsal and plantar calcaneal spurs.
[2022-12-30 11:01] LABS: C Reactive Protein 1.57 mg/dL (< or = 0.50)
[2023-01-02 15:23] LABS: Cyclic Citrullinated Peptide <16 UNITS
== END 2022-12-30 08:48 | disposition home or self-care (01) ==
LOC: HO.XRAY 08:47
PROVIDERS: Visit Provider Student in an Organized Health Care Education/Training Program
DX: M79.672 Pain in left foot (principal); M79.671 Pain in right foot; M79.641 Pain in right hand; M79.642 Pain in left hand; M25.511 Pain in right shoulder; M25.512 Pain in left shoulder; M25.531 Pain in right wrist; M25.532 Pain in left wrist
CPT/HCPCS: 36415; 73030; 73110; 73130; 73630; 86140; 86200

== ENCOUNTER 2022-12-30 08:47 | Outpatient (AMB) | payer OTHER, SELFPAY ==
--- NOTE | 2022-12-30 08:50 | MHC.OFFVIS ---
Intake Vital Signs 12/30/22 08:52 Height 5 ft 2 in Weight 206 lb 12.697 oz BMI 37.8 BP 118/64 Blood Pressure Location Rt brachial Position Sitting Pulse 81 Pulse Source Pulse Oximeter Temp 97.3 F Temp Source Skin Pulse Oximetry (%) 97 Intake Visit Reasons: Joint Pain Intake Note: New pt presents today for joint pain consult. Shop Hand Required: No Accompanied by: Self / Same As Patient Allergies penicillin V Allergy (Unknown, Verified 12/30/22 08:57) Rash Medication List - Last Reconciled 12/30/22 by Viridiana Rodríguez MD acetaminophen (Tylenol Extra Strength) 500 mg PO Q6H PRN cetirizine 10 mg PO DAILY cholestyramine-aspartame 4 gram 4 grams PO DAILY PRN 60 days cyclobenzaprine 5 mg PO Q8H PRN 5 days fexofenadine (Asha Allergy) 60 mg PO BID fluticasone propionate 50 mcg/actuation (Flonase Allergy Relief) 2 sprays intranasal DAILY PRN lidocaine 5% (Lidoderm) 1 patch topical DAILY PRN MDD remove after 12 hours meloxicam 15 mg PO DAILY naproxen 500 mg PO BID PRN 10 days HPI HPI Comments History of Present Illness Details This is a 37-year-old female who presents for evaluation of multiple joint pain. The condition started about 1 year ago with pain in her neck, shoulders, wrists, ankles, hips. Pain is constant, generally worse with activity. She has generalized morning stiffness lasting about 20 minutes improved with taking a hot shower. She takes naproxen or meloxicam about once a month. She denies any skin rashes. Mentions that her mother has rheumatoid arthritis. 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 She has history of 3 pregnancies, no abortions or miscarriages. No history of DVT/PE [facility] Medical History Arthritis Dysuria Lower back pain Patient denies significant medical history Surgical History H/O tubal ligation History of appendectomy History of cholecystectomy Family History Father No problems noted. Mother Diabetes Maternal Grandmother Breast cancer Diabetes Maternal Grandfather Past heart attack CVD (cardiovascular disease) Brother Brain cancer Maternal Uncle Colon cancer Social History Housing: House Alcohol intake: never Patient Tobacco Use Status: Never used Tobacco e-Cigarette/Vaping Use: Never Used Second Hand Smoke Exposure: No service: No Current occupational status: employed Current occupation: [email or web address] Current occupational exposures/hazards: No Gender identity: Female Cognitive needs: No Hearing needs: No Vision needs: Yes (glasses) Female Reproductive History Menstrual Age of Menarche: 12 Total pregnancies: 3 Review of Systems Const Reports fatigue and Reports headache(s) ENT Reports dizziness, Reports headache(s) and Reports neck pain Musc Reports back pain, Reports arthralgias, Reports neck pain and Reports stiffness Neuro Reports dizziness and Reports headache(s) Endo Reports fatigue Physical Exam Vital Signs: Last Vital Signs Temp 97.3 F 12/30/22 08:52 Pulse 81 12/30/22 08:52 BP 118/64 12/30/22 08:52 Pulse Ox 97 12/30/22 08:52 BMI result Body Mass Index 37.8 Const General: cooperative, healthy appearing and comfortable Nutritional Appearance: obese Orientation/consciousness: patient oriented x3 Limitations: no limitations HEENT Head: Yes normocephalic and Yes atraumatic Mouth: moist mucous membranes Resp Effort & Inspection: normal respiratory effort and able to speak in complete sentences Auscultation: clear to auscultation bilaterally Cardio Rate: regular rate Rhythm: regular rhythm Skin General skin exam: no rashes or lesions noted Neuro General: patient oriented x3 Extrem Other: Bilateral tender wrists and pain with full flexion extension without swelling Few tender MCPs, PIP is bilaterally Negative MCP squeeze test bilaterally No elbow pain with full flexion and extension Bilateral shoulder pain with full abduction Bilateral positive empty can test and infraspinatus test Multiple fibromyalgia tender points Bilateral trochanteric bursa area tenderness with negative Carson's test No wrist or ankle swelling or warmth Negative MTP squeeze test bilaterally Assessment & Plan Assessment & Plan (1) Polyarthralgia: Code(s): M25.50 - Pain in unspecified joint Plan: This is a 37-year-old female who presents for evaluation of polyarthralgia. Upon evaluation patient has multiple tender joints without significant swelling. She also has few fibromyalgia tender points. She also has some findings of rotator cuff tendinopathy and trochanteric bursitis bilaterally. She has history of rheumatoid arthritis in her mother. Labs showed negative LITZY/RF with normal ESR. Will check an anti CCP. Check x-rays of involved joints. Follow-up in 1 month Plan I spent 47minutes reviewing patient's chart, evaluating patient, ordering diagnostic workup, counseling patient and documenting in the chart Orders: Orders Cyclic Citrullinated Peptide Today M25.50 - Pain in unspecified joint C Reactive Protein Today M25.50 - Pain in unspecified joint XR hand wrist LT Today M25.50 - Pain in unspecified joint XR hand wrist RT Today M25.50 - Pain in unspecified joint XR foot LT min 3V Today M25.50 - Pain in unspecified joint XR foot RT min 3V Today M25.50 - Pain in unspecified joint XR shoulder LT min 2V Today M25.50 - Pain in unspecified joint XR shoulder RT min 2V Today M25.50 - Pain in unspecified joint Coding Level of Care Code New Pt Level 4 (36089) Diagnoses Polyarthralgia M25.50
[2022-12-30 08:52] VITALS: BP 118/64; PULSE 81; TEMP 36.3; O2SAT 97; BMI 37.8
== END 2022-12-30 09:18 | disposition home or self-care (01) ==
PROVIDERS: PCP Internal Medicine; Visit Provider Student in an Organized Health Care Education/Training Program
DX: M25.50 Pain in unspecified joint (principal)
CPT/HCPCS: 99204

== ENCOUNTER 2023-01-18 12:23 | Emergency (ER) | payer OTHER, SELFPAY ==
[2023-01-18 12:38] VITALS: BP 127/72; PULSE 107; RESP 16; TEMP 36.9; O2SAT 95; BMI 37.2
--- NOTE | 2023-01-18 12:40 | ED_ITS ---
HPI - General Adult General Chief complaint: General Medical Stated complaint: Headache Congestion Ear Pain Time Seen by Provider: 01/18/23 12:44 Source: patient and RN notes reviewed Mode of arrival: ambulatory Limitations: no limitations History of Present Illness HPI narrative: 37-year-old female presents for evaluation of absent to bilateral ear pain, congestion, headache. She reports her symptoms started 2 days ago. She reports fevers at home as high as 100.7 She took a COVID test right before coming, which was reportedly negative. From below denies any shortness of breath She had a mild sore throat yesterday which has improved slightly No other complaints or concerns Related Data Home Medications Medication Instructions Recorded Confirmed meloxicam 15 mg tablet 15 mg PO DAILY 12/30/22 12/30/22 Previous Rx's Medication Instructions Recorded fexofenadine 60 mg tablet (Asha 60 mg PO BID #60 tabs 09/10/21 Allergy) fluticasone propionate 50 2 spray intranasal DAILY PRN 09/10/21 mcg/actuation nasal allergy symptoms #16 grams spray,suspension (Flonase Allergy Relief) cetirizine 10 mg tablet 10 mg PO DAILY #14 tabs 09/21/21 acetaminophen 500 mg tablet 500 mg PO Q6H PRN fever or pain 07/17/22 (Tylenol Extra Strength) #14 tabs cyclobenzaprine 5 mg tablet 5 mg PO Q8H PRN pain (scale score 07/17/22 7-10) 5 days #14 tabs lidocaine 5 % topical patch 1 patch topical DAILY PRN pain #30 07/17/22 (Lidoderm) ea naproxen 500 mg tablet 500 mg PO BID PRN pain 10 days #20 07/17/22 tabs cholestyramine-aspartame 4 gram 4 g PO DAILY PRN diarrhea 60 days 09/20/22 oral powder for susp in a packet #60 ea azithromycin 250 mg tablet See Rx Instructions PO .COMPLEX #6 01/18/23 tabs Allergies Allergy/AdvReac Type Severity Reaction Status Date / Time penicillin V Allergy Unknown Rash Verified 01/18/23 12:41 Review of Systems Constitutional: Constitutional: Reports fever(s), Reports headache(s) and Reports malaise ENT: Reports headache(s) Cardiovascular: Cardiovascular: Denies chest pain and Denies dyspnea Respiratory: Respiratory: Denies cough and Denies dyspnea Gastrointestinal: Gastrointestinal: Denies abdominal pain Integumentary/Breasts: Skin/Breast: Denies rash Neurologic: Reports headache(s) PMFSH Past Medical History Medical History Arthritis Dysuria Lower back pain Patient denies significant medical history Surgical History H/O tubal ligation History of appendectomy History of cholecystectomy Family History Family History Father No problems noted. Mother Diabetes Maternal Grandmother Breast cancer Diabetes Maternal Grandfather Past heart attack CVD (cardiovascular disease) Brother Brain cancer Maternal Uncle Colon cancer Social History Social History Housing: House Alcohol intake: never Patient Tobacco Use Status: Never used Tobacco e-Cigarette/Vaping Use: Never Used Second Hand Smoke Exposure: No service: No Current occupational status: employed Current occupation: [employer] Current occupational exposures/hazards: No Gender identity: Female Cognitive needs: No Hearing needs: No Vision needs: Yes (glasses) Physical Exam ED Vital Signs: Vital Signs - 24 hr 01/18/23 12:38 Temperature 98.5 F Pulse Rate 107 H Respiratory Rate 16 Blood Pressure 127/72 Pulse Oximetry 95 BMI result Body Mass Index 37.2 Const General: healthy appearing, comfortable, no acute distress, alert and awake Nutritional Appearance: well nourished Orientation/consciousness: patient oriented x3 HENMT Other: Bilateral middle ear effusions, minimal injection to the TMs bilaterally. No perforation. External canals clear bilaterally. Head: Yes normocephalic and Yes atraumatic Face and sinus: Yes face symmetric and Yes sinus tenderness Throat: Yes posterior oropharynx normal Eyes Eyelids: Yes eyelids normal Conjunctivae: conjunctivae normal Sclerae: sclerae normal Corneas: corneas normal Pupils: Equal, round and reactive pupils present EOM: EOMs intact bilaterally Neck Neck: Yes full ROM Resp Effort & Inspection: normal respiratory effort, able to speak in complete sentences and not labored Skin General skin exam: elasticity normal Neuro General: patient oriented x3 Cranial nerves: Yes Equal, round and reactive pupils present and Yes Bilaterally intact EOM present Cognition (Neuro): normal cognition Extrem Other: Moving all extremities well without any obvious deformities Medical Decision Making Medical Decision Making MDM Narrative: Will not repeat COVID testing as the patient reports she took a home test just before coming to the ER. She has history exam consistent with mild sinusitis will treat with azithromycin given the amoxicillin allergy. Differential Diagnosis Differential Diagnoses: The differential diagnosis associated with the presentation includes Sinusitis Upper respiratory infection COVID-19 Otitis media Otitis externa Discharge Plan Discharge Clinical Impression: Sinusitis Patient Disposition: Home, Self-Care Instructions: Rhinosinusitis (ED) Additional Instructions: Take the azithromycin as prescribed. Use Motrin or Tylenol for pain/headache You may also use [id number] decongestant medication for her symptoms Follow-up with your primary doctor Prescriptions: New azithromycin 250 mg tablet See Rx Instructions .ROUTE .COMPLEX Qty: 6 0RF Rx Instructions: For 250 mg dose pack: take 500 mg today (day 1), then 250 mg for 4 days (days 2-5) No Action cetirizine 10 mg tablet 10 mg PO DAILY Qty: 14 0RF acetaminophen [Tylenol Extra Strength] 500 mg tablet 500 mg PO Q6H PRN (Reason: fever or pain) Qty: 14 0RF lidocaine [Lidoderm] 5 % adhesive patch,medicated 1 patch topical DAILY MDD remove after 12 hours PRN (Reason: pain) Qty: 30 0RF Rx Instructions: leave on most painful area for up to 12 hrs naproxen 500 mg tablet 500 mg PO BID PRN (Reason: pain) 10 Days Qty: 20 0RF cyclobenzaprine 5 mg tablet 5 mg PO Q8H PRN (Reason: pain (scale score 7-10)) 5 Days Qty: 14 0RF cholestyramine-aspartame 4 gram powder in packet 4 g PO DAILY PRN (Reason: diarrhea) 60 Days Qty: 60 0RF Rx Instructions: administer w/meal; avoid other meds within 1hr before or 4-6hr after dose fexofenadine [Asha Allergy] 60 mg tablet 60 mg PO BID Qty: 60 0RF fluticasone propionate [Flonase Allergy Relief] 50 mcg/actuation spray,suspension 2 spray intranasal DAILY PRN (Reason: allergy symptoms) Qty: 16 0RF Rx Instructions: administer into each nostril meloxicam 15 mg tablet 15 mg PO DAILY
== END 2023-01-18 12:47 | disposition home or self-care (01) ==
PROVIDERS: Emergency Provider Emergency Medicine Emergency Medical Services; PCP Internal Medicine
DX: J32.9 Chronic sinusitis, unspecified (principal); Z79.899 Other long term (current) drug therapy
CPT/HCPCS: 99282; 99283

== ENCOUNTER 2023-03-03 15:49 | Outpatient (AMB) | payer OTHER, SELFPAY ==
[2023-03-03 15:50] VITALS: BP 120/74; PULSE 85; TEMP 36.6; O2SAT 100; BMI 37.7
--- NOTE | 2023-03-03 15:50 | A.OFFVIS_ITS ---
Intake Vital Signs 03/03/23 15:50 Height 5 ft 2 in Weight 206 lb 5.643 oz BMI 37.7 BP 120/74 Blood Pressure Location Rt brachial Position Sitting Pulse 85 Pulse Source Pulse Oximeter Temp 97.8 F Temp Source Skin Pulse Oximetry (%) 100 Intake Visit Reasons: OA Intake Note: Pt presents today for follow up and test results. 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 Accompanied by: Self / Same As Patient Allergies penicillin V Allergy (Unknown, Verified 03/03/23 15:54) Rash Medication List - Last Reconciled 03/03/23 by Viridiana Rodríguez MD acetaminophen (Tylenol Extra Strength) 500 mg PO Q6H PRN cetirizine 10 mg PO DAILY cholestyramine-aspartame 4 gram 4 grams PO DAILY PRN 60 days cyclobenzaprine 5 mg PO Q8H PRN 5 days fexofenadine (Asha Allergy) 60 mg PO BID fluticasone propionate 50 mcg/actuation (Flonase Allergy Relief) 2 sprays intranasal DAILY PRN lidocaine 5% (Lidoderm) 1 patch topical DAILY PRN MDD remove after 12 hours meloxicam 15 mg PO DAILY prednisone Take 3 tabs by mouth once daily with breakfast for 1 week then 2 tabs daily for 1 week then 1 tab daily for 1 week then stop HPI HPI Comments History of Present Illness Details Patient returns for follow-up after completion of her diagnostic workup. Continues to feel about the same Initial history: This is a 37-year-old female who presents for evaluation of multiple joint pain. The condition started about 1 year ago with pain in her neck, shoulders, wrists, ankles, hips. Pain is constant, generally worse with activity. She has generalized morning stiffness lasting about 20 minutes improved with taking a hot shower. She takes naproxen or meloxicam about once a month. She denies any skin rashes. Mentions that her mother has rheumatoid arthritis. 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 She has history of 3 pregnancies, no abortions or miscarriages. No history of DVT/PE [facility] Medical History Dysuria Arthritis Lower back pain Patient denies significant medical history Surgical History History of appendectomy History of cholecystectomy H/O tubal ligation Family History Father No problems noted. 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 Current occupational exposures/hazards: No Gender identity: Female Cognitive needs: No Hearing needs: No Vision needs: Yes (glasses) Female Reproductive History Menstrual Age of Menarche: 12 Review of Systems Musc Reports back pain, Reports arthralgias and Reports stiffness Physical Exam Vital Signs: Last Vital Signs Temp 97.8 F 03/03/23 15:50 Pulse 85 03/03/23 15:50 BP 120/74 03/03/23 15:50 Pulse Ox 100 03/03/23 15:50 BMI result Body Mass Index 37.7 Const General: cooperative, healthy appearing and comfortable Nutritional Appearance: obese Orientation/consciousness: patient oriented x3 Limitations: no limitations HEENT Head: Yes normocephalic and Yes atraumatic Resp Effort & Inspection: normal respiratory effort and able to speak in complete sentences Skin General skin exam: no rashes or lesions noted Neuro General: patient oriented x3 Extrem Other: Bilateral tender wrists and pain with full flexion extension without swelling Nontender MCPs bilaterally Positive MCP squeeze test bilaterally No elbow pain with full flexion and extension Bilateral shoulder pain with full abduction Bilateral positive empty can test and infraspinatus test Multiple fibromyalgia tender points Bilateral trochanteric bursa area tenderness with negative Carson's test Bilateral ankle tenderness Negative MTP squeeze test bilaterally Assessment & Plan Assessment & Plan (1) Polyarthralgia: Code(s): M25.50 - Pain in unspecified joint Plan: This is a 37-year-old female who presents for evaluation of polyarthralgia. Upon evaluation patient has multiple tender joints without significant swelling. She also has few fibromyalgia tender points. She also has some findings of rotator cuff tendinopathy and trochanteric bursitis bilaterally. She has history of rheumatoid arthritis in her mother. Labs showed negative LITZY/RF/CCP with normal ESR and elevated CRP.. X-rays are unremarkable. Will start prednisone therapeutic trial Follow-up in 1 month Plan I spent 17minutes reviewing patient's chart, evaluating patient, counseling patient and documenting in the chart Medications: New prednisone Take 3 tabs by mouth once daily with breakfast for 1 week then 2 tabs daily for 1 week then 1 tab daily for 1 week then stop 42 tabs 0RF Coding Level of Care Code Est Pt Level 3 (38425) Diagnoses Polyarthralgia M25.50
== END 2023-03-03 16:14 | disposition home or self-care (01) ==
PROVIDERS: PCP Internal Medicine; Visit Provider Student in an Organized Health Care Education/Training Program
DX: M25.50 Pain in unspecified joint (principal)
CPT/HCPCS: 99213

== ENCOUNTER → 2023-03-03 15:49 | Outpatient (BNVA) | payer OTHER, SELFPAY | PROVIDERS: PCP Internal Medicine; Visit Provider Student in an Organized Health Care Education/Training Program ==

== ENCOUNTER 2023-03-23 15:46 | Outpatient (AMB) | payer OTHER, SELFPAY ==
[2023-03-23 15:49] VITALS: BP 118/64; PULSE 68; O2SAT 82; BMI 38.2
--- NOTE | 2023-03-23 15:49 | MHC.OFFVIS ---
Intake Vital Signs 03/23/23 15:49 Height 5 ft 2 in Weight 208 lb 12.444 oz BMI 38.2 BP 118/64 Blood Pressure Location Rt brachial Position Sitting Pulse 68 Pulse Source Pulse Oximeter Pulse Oximetry (%) 82 L Oxygen Delivery Method Room Air Intake Visit Reasons: RA Intake Note: Pt last seen 03/03/23, presents today for follow up after completing prednisone trial. 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 Accompanied by: Self / Same As Patient Allergies penicillin V Allergy (Unknown, Verified 03/03/23 15:54) Rash Medication List - Last Reconciled 03/23/23 by Viridiana Rodríguez MD acetaminophen (Tylenol Extra Strength) 500 mg PO Q6H PRN cetirizine 10 mg PO DAILY cholestyramine-aspartame 4 gram 4 grams PO DAILY PRN 60 days cyclobenzaprine 5 mg PO Q8H PRN 5 days fexofenadine (Asha Allergy) 60 mg PO BID fluticasone propionate 50 mcg/actuation (Flonase Allergy Relief) 2 sprays intranasal DAILY PRN lidocaine 5% (Lidoderm) 1 patch topical DAILY PRN MDD remove after 12 hours meloxicam 15 mg PO DAILY prednisone Take 3 tabs by mouth once daily with breakfast for 1 week then 2 tabs daily for 1 week then 1 tab daily for 1 week then stop HPI HPI Comments History of Present Illness Details Patient returns after completion of prednisone taper. She felt at least 50% improvement in her pain in her hands shoulders. Stated that when the dose was lowered to 10 mg a day she started having recurrent joint pain. Initial history: This is a 37-year-old female who presents for evaluation of multiple joint pain. The condition started about 1 year ago with pain in her neck, shoulders, wrists, ankles, hips. Pain is constant, generally worse with activity. She has generalized morning stiffness lasting about 20 minutes improved with taking a hot shower. She takes naproxen or meloxicam about once a month. She denies any skin rashes. Mentions that her mother has rheumatoid arthritis. 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 She has history of 3 pregnancies, no abortions or miscarriages. No history of DVT/PE [facility] Medical History Dysuria Arthritis Lower back pain Patient denies significant medical history Surgical History History of appendectomy History of cholecystectomy H/O tubal ligation Family History Father No problems noted. 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 Current occupational exposures/hazards: No Gender identity: Female Cognitive needs: No Hearing needs: No Vision needs: Yes (glasses) Female Reproductive History Menstrual Age of Menarche: 12 Review of Systems Musc Reports arthralgias and Reports stiffness Physical Exam Vital Signs: Last Vital Signs Pulse 68 03/23/23 15:49 BP 118/64 03/23/23 15:49 Pulse Ox 82 L 03/23/23 15:49 Oxygen Delivery Method Room Air 03/23/23 15:49 BMI result Body Mass Index 38.2 Const General: cooperative, healthy appearing and comfortable Nutritional Appearance: obese Orientation/consciousness: patient oriented x3 Limitations: no limitations HEENT Head: Yes normocephalic and Yes atraumatic Resp Effort & Inspection: normal respiratory effort and able to speak in complete sentences Skin General skin exam: no rashes or lesions noted Neuro General: patient oriented x3 Extrem Other: Bilateral tender wrists and pain with full flexion extension without swelling Nontender MCPs bilaterally Positive MCP squeeze test bilaterally Bilateral diffusely tender PIPs No elbow pain with full flexion and extension Normal range of motion of both shoulders without pain few fibromyalgia tender points Bilateral trochanteric bursa area tenderness with negative Carson's test Assessment & Plan Assessment & Plan (1) Seronegative rheumatoid arthritis: Code(s): M06.00 - Rheumatoid arthritis without rheumatoid factor, unspecified site Plan: This is a 37-year-old female who presents for evaluation of diffuse joint pain. On exam she has multiple tender joints. Labs showed negative serologies with mildly elevated inflammatory markers. Symptoms currently improved with prednisone taper. She has a history of rheumatoid arthritis in her mother. Discussed DMARDs. Discussed risks and benefits of hydroxychloroquine. Start hydroxychloroquine 200 mg Twice daily (2) Long-term use of hydroxychloroquine: Code(s): Z79.899 - Other manager intermediate (current) drug therapy Plan: Patient states that she has a follow-up appointment with her eye doctor in a couple of months. Advised patient to let them know that she was started on hydroxychloroquine and appropriate screening is needed Plan I spent 26 minutes reviewing patient's chart, evaluating patient, ordering diagnostic workup, counseling patient and documenting in the chart Orders: Orders Complete Blood Count Auto Diff 3 Months M06.00 - Rheumatoid arthritis without rheumatoid factor, unspecified site Comprehensive Met. Panel 3 Months M06.00 - Rheumatoid arthritis without rheumatoid factor, unspecified site C Reactive Protein 3 Months M06.00 - Rheumatoid arthritis without rheumatoid factor, unspecified site Hepatitis A,B,C Profile 3 Months Z11.59 - Encounter for screening for other viral diseases Erythrocyte Sedimentation Rate 3 Months M06.00 - Rheumatoid arthritis without rheumatoid factor, unspecified site T Spot TB 3 Months Z11.7 - Encounter for testing for latent tuberculosis infection Medications: New hydroxychloroquine 200 mg PO BID 60 tabs 2RF Coding Level of Care Code Est Pt Level 4 (37972) Diagnoses Seronegative rheumatoid arthritis M06.00 Long-term use of hydroxychloroquine Z79.899
== END 2023-03-23 16:05 | disposition home or self-care (01) ==
PROVIDERS: PCP Internal Medicine; Visit Provider Student in an Organized Health Care Education/Training Program
DX: M06.00 Rheumatoid arthritis without rheumatoid factor, unspecified site (principal); Z79.899 Other long term (current) drug therapy
CPT/HCPCS: 99214

== ENCOUNTER → 2023-03-23 15:46 | Outpatient (BNVA) | payer OTHER, SELFPAY | PROVIDERS: PCP Internal Medicine; Visit Provider Student in an Organized Health Care Education/Training Program ==

== ENCOUNTER 2023-07-07 14:10 | Outpatient (REF) | payer OTHER, SELFPAY ==
[2023-07-07 14:20] LABS: MANUAL DIFF FLAG NO
[2023-07-07 15:25] LABS: Basophils Percent Auto 0.4 % (0-2); Eosinophils Absolute Auto 0.1 X10*3/uL (0.0-0.4); Eosinophils Percent Auto 1.3 % (0-4); Hematocrit 41.4 % (37.0-47.0); Hemoglobin 13.6 g/dl (12.0-16.0); Imm Gran Abs Auto 0.02 X10*3/uL (0.00-0.03); Imm Gran Pct Auto 0.3 % (0.0-0.4); Lymphocytes Percent Auto 27.2 % (20-40); Mean Corpuscular HGB Conc 32.9 g/dl (31.0-35.0); Mean Corpuscular Volume 85.4 fL (80.0-98.0); Mean Platelet Volume 10.2 fL (9.4-12.3); Monocytes Absolute Auto 0.5 X10*3/uL (0.1-1.2); Monocytes Percent Auto 6.3 % (2-11); Neutrophils Absolute Auto 4.6 x10*3/uL (2.0-8.3); Neutrophils Percent Auto 64.5 % (45-73); Platelet Count 292 X10*3/uL (160-400); Red Blood Count 4.85 X10*6/uL (4.20-5.50); Red Cell Distribution Width 12.1 % (11.0-16.0); White Blood Count 7.2 X10*3/uL (4.8-10.8)
[2023-07-07 15:35] LABS: Alanine Aminotransferase 31 U/L (0-31); Albumin Level 3.9 g/dL (3.5-5.0); Alkaline Phosphatase 65 U/L (39-117); Anion Gap 12 (12-20); Aspartate Amino Transferase 19 U/L (5-31); Bilirubin Total 0.4 mg/dL (0.0-1.0); Blood Urea Nitrogen 14 mg/dL (9-16); C Reactive Protein 0.91 mg/dL (< or = 0.50); Calcium 9.5 mg/dL (8.4-10.2); Carbon Dioxide 30 mmol/L (22-29); Chloride 105 mmol/L (96-108); Estimated Glomerular Filt Rate > 60; Glucose Random 87 mg/dL (60-115); Potassium 3.4 mmol/L (3.3-5.1); Sodium 144 mmol/L (135-145); Total Protein 7.5 g/dL (6.5-8.0)
[2023-07-07 15:59] LABS: Erythrocyte Sedimentation Rate 16 MM/HR (0-20)
[2023-07-08 04:04] LABS: HBc Num1 0.15 S/CO (0.00-0.79); Hepatitis B Core Antibody Nonreactive (Nonreactive); Hepatitis B Surface Antigen Negative (Negative); ~HepC Num1 0.15 S/CO (0.00-0.79); ~Hepatitis B Surface Antibody REACTIVE (Nonreactive); ~Hepatitis C Antibody Nonreactive (Nonreactive)
[2023-07-08 04:17] LABS: Hepatitis A Antibody IgM 0.17 Index (0-0.79); ~Hepatitis A Antibody IgM Nonreactive (Nonreactive)
[2023-07-10 10:48] LABS: TS Negative Control Passed; TS Panel A 0; TS Panel B 0; TS Positive Control Passed; TSpotTB Negative (Negative)
== END 2023-07-07 14:11 | disposition home or self-care (01) ==
LOC: HO.LAB 14:10
PROVIDERS: PCP Internal Medicine; Visit Provider Student in an Organized Health Care Education/Training Program
DX: Z11.7 Encounter for testing for latent tuberculosis infection (principal); Z11.59 Encounter for screening for other viral diseases; M06.00 Rheumatoid arthritis without rheumatoid factor, unspecified site; Z72.89 Other problems related to lifestyle
CPT/HCPCS: 36415; 80053; 85025; 85652; 86140; 86481; 86704; 86706; 86709; 86803; 87340

== ENCOUNTER 2023-07-10 13:15 | Outpatient (AMB) | payer OTHER, SELFPAY ==
--- NOTE | 2023-07-10 13:18 | A.OFFVIS_ITS ---
Intake Vital Signs 07/10/23 13:21 Height 5 ft 2 in Weight 205 lb 7.533 oz BMI 37.6 BP 120/62 Blood Pressure Location Rt brachial Position Sitting Pulse 78 Pulse Source Pulse Oximeter Pulse Oximetry (%) 96 Oxygen Delivery Method Room Air Intake Visit Reasons: RA Intake Note: Patient last seen 03/23/23 presents today for follow up and test results. 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 Accompanied by: Spouse Allergies penicillin V Allergy (Unknown, Verified 07/10/23 13:25) Rash Medication List - Last Reconciled 07/10/23 by Viridiana Rodríguez MD acetaminophen (Tylenol Extra Strength) 500 mg PO Q6H PRN cetirizine 10 mg PO DAILY cholestyramine-aspartame 4 gram 4 grams PO DAILY PRN 60 days cyclobenzaprine 5 mg PO Q8H PRN 5 days fexofenadine (Asha Allergy) 60 mg PO BID fluticasone propionate 50 mcg/actuation (Flonase Allergy Relief) 2 sprays intranasal DAILY PRN hydroxychloroquine 200 mg PO BID lidocaine 5% (Lidoderm) 1 patch topical DAILY PRN MDD remove after 12 hours meloxicam 15 mg PO DAILY HPI HPI Comments History of Present Illness Details 38-year-old female with seronegative RA returns for follow-up. Has been on hydroxychloroquine regularly for 3 months now. She denies any side effects except for rare GI upset. She feels about 50% improvement in her overall joint pain. Initial history: This is a 37-year-old female who presents for evaluation of multiple joint pain. The condition started about 1 year ago with pain in her neck, shoulders, wrists, ankles, hips. Pain is constant, generally worse with activity. She has generalized morning stiffness lasting about 20 minutes improved with taking a hot shower. She takes naproxen or meloxicam about once a month. She denies any skin rashes. Mentions that her mother has rheumatoid arthritis. 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 She has history of 3 pregnancies, no abortions or miscarriages. No history of DVT/PE PFSH Medical History Dysuria Arthritis Lower back pain Patient denies significant medical history Surgical History History of appendectomy History of cholecystectomy H/O tubal ligation Family History Father No problems noted. 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 Current occupational exposures/hazards: No Gender identity: Female Cognitive needs: No Hearing needs: No Vision needs: Yes (glasses) Female Reproductive History Menstrual Age of Menarche: 12 Review of Systems Musc Reports arthralgias and Reports stiffness Physical Exam Vital Signs: Last Vital Signs Pulse 78 07/10/23 13:21 BP 120/62 07/10/23 13:21 Pulse Ox 96 07/10/23 13:21 Oxygen Delivery Method Room Air 07/10/23 13:21 BMI result Body Mass Index 37.6 Const General: cooperative, healthy appearing and comfortable Nutritional Appearance: obese Orientation/consciousness: patient oriented x3 Limitations: no limitations HEENT Head: Yes normocephalic and Yes atraumatic Resp Effort & Inspection: normal respiratory effort and able to speak in complete sentences Skin General skin exam: no rashes or lesions noted Neuro General: patient oriented x3 Extrem Other: Right wrist tenderness, no pain with flexion and extension No left wrist tenderness or pain with flexion and extension Nontender MCPs bilaterally Positive MCP squeeze test bilaterally No tender PIPs bilaterally No elbow pain with full flexion and extension Tenderness at the common extensor origin at the lateral epicondyle on the right with positive resisted wrist extension test and positive resisted wrist flexion test Normal range of motion of both shoulders without pain few fibromyalgia tender points Assessment & Plan Assessment & Plan (1) Seronegative rheumatoid arthritis: Comment: dx 03/2023 HCQ 03/2023 effective Code(s): M06.00 - Rheumatoid arthritis without rheumatoid factor, unspecified site Plan: This is a 38-year-old female with seronegative RA who presents for follow-up. Doing better on hydroxychloroquine 200 mg Twice daily. Discussed with patient that some of her pain is due to inflammation which is improved, she also has pain that is degenerative and mechanical in nature, likely related to her job Continue with hydroxychloroquine 200 mg Twice daily Labs before next visit in 6 months (2) Long-term use of hydroxychloroquine: Code(s): Z79.899 - Other [employer] (current) drug therapy Plan: Patient states that she has a follow-up appointment with her eye doctor next month. Advised patient to let them know that she was started on hydroxychloroquine and appropriate screening is needed, and to send me their notes Plan I spent 26 minutes reviewing patient's chart, evaluating patient, ordering diagnostic workup, counseling patient and documenting in the chart Orders: Orders Complete Blood Count Auto Diff 6 Months M06.00 - Rheumatoid arthritis without rheumatoid factor, unspecified site, Z79.899 - Other shelter (current) drug therapy C Reactive Protein 6 Months M06.00 - Rheumatoid arthritis without rheumatoid factor, unspecified site, Z79.899 - Other [employer] (current) drug therapy Comprehensive Met. Panel 6 Months M06.00 - Rheumatoid arthritis without rheumatoid factor, unspecified site, Z79.899 - Other shelter (current) drug therapy Erythrocyte Sedimentation Rate 6 Months M06.00 - Rheumatoid arthritis without rheumatoid factor, unspecified site, Z79.899 - Other [employer] (current) drug therapy Medications: Refilled hydroxychloroquine 200 mg PO BID 180 tabs 1RF Coding Level of Care Code Est Pt Level 4 (95518) Diagnoses Seronegative rheumatoid arthritis M06.00 Long-term use of hydroxychloroquine Z79.899
[2023-07-10 13:21] VITALS: BP 120/62; PULSE 78; O2SAT 96; BMI 37.6
== END 2023-07-10 14:05 | disposition home or self-care (01) ==
PROVIDERS: PCP Internal Medicine; Visit Provider Student in an Organized Health Care Education/Training Program
DX: M06.00 Rheumatoid arthritis without rheumatoid factor, unspecified site (principal); Z79.899 Other long term (current) drug therapy
CPT/HCPCS: 99214

== ENCOUNTER → 2023-07-10 13:15 | Outpatient (BNVA) | payer OTHER, SELFPAY | PROVIDERS: PCP Internal Medicine; Visit Provider Student in an Organized Health Care Education/Training Program ==

== ENCOUNTER 2023-09-21 11:36 | Outpatient (AMB) | payer OTHER, SELFPAY ==
--- NOTE | 2023-09-21 12:08 | MHC.OFFWIV ---
Intake Vital Signs 09/21/23 12:09 Height 5 ft 2 in BP 122/64 Blood Pressure Location Rt brachial Position Sitting Pulse 66 Pulse Source Pulse Oximeter Temp 98.2 F Temp Source Oral Pulse Oximetry (%) 98 Intake Visit Reasons: EST/sinus pressure(lobby) Intake Note: pt is here for sinus pressure for a week Patient Tobacco Use Status: Never used Tobacco Allergies penicillin V Allergy (Unknown, Verified 09/21/23 12:09) Rash Do you need a note to return to daycare/school/sports/work: No HPI HPI Comments History of Present Illness Details The patient presents to emergency department for evaluation of sinus congestion. She states that she has sinus congestion for a week and a half with sore throat. There has been no nasal drainage. No fever chills. No sick contacts at home. She has been using [id number]-[id number] cold remedies without any change in symptoms. [facility] Medical History Dysuria Arthritis Lower back pain Patient denies significant medical history Surgical History History of appendectomy History of cholecystectomy H/O tubal ligation Family History Father No problems noted. 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 Current occupational exposures/hazards: No Gender identity: Female Cognitive needs: No Hearing needs: No Vision needs: Yes (glasses) Female Reproductive History Menstrual Age of Menarche: 12 Review of Systems Const Reports headache(s) and Denies increased appetite ENT Reports headache(s), Reports nasal obstruction, Denies disequilibrium, Reports post nasal drip, Reports sinus pain and Denies sore throat Card Denies radiating jaw, neck or arm pain and Denies dyspnea Resp Denies hemoptysis and Denies dyspnea Neuro Reports headache(s) and Denies disequilibrium Physical Exam Vital Signs: Last Vital Signs Temp 98.2 F 09/21/23 12:09 Pulse 66 09/21/23 12:09 BP 122/64 09/21/23 12:09 Pulse Ox 98 09/21/23 12:09 Const General: healthy appearing and no acute distress HEENT Head: Yes normal to inspection Ears: external ears normal General nose exam: Abnormal mucous membranes and turbinates present and Other nasal findings present (max sinus TTP BL) Mouth: Normal oral and palatal mucosa present Throat: Yes posterior oropharynx normal Chest Chest palpation & inspection: normal inspection of the chest Resp Effort & Inspection: normal respiratory effort and able to speak in complete sentences Assessment & Plan Assessment & Plan (1) Sinusitis: Code(s): J32.9 - Chronic sinusitis, unspecified Plan A/P - Acute Sinusitis I Suspect that there may be a bacterial component to this illness based on symptoms, and so feel that antibiotics is reasonable for this patient. Discussed typical course of illness and supportive measures. Fluids, rest, motrin or tylenol prn fevers/pain. Encouraged to use sudafed 12 hour to relieve sinus pressure. Advised not to use later in day as this can cause insomnia. Discussed reasons to return including SOB, VERDUZCO, worsening of not improving after 1-2 weeks, worsening of symptoms. Medications: New azithromycin For 250 mg dose pack: take 500 mg today (day 1), then 250 mg for 4 days (days 2-5) PO 6 tabs 0RF Coding Level of Care Code Est Pt Level 3 (88209) Diagnoses Sinusitis J32.9
[2023-09-21 12:09] VITALS: BP 122/64; PULSE 66; TEMP 36.8; O2SAT 98
== END 2023-09-21 13:28 | disposition home or self-care (01) ==
PROVIDERS: PCP Internal Medicine; Visit Provider Emergency Medicine
DX: J32.9 Chronic sinusitis, unspecified (principal)
CPT/HCPCS: 99213

== ENCOUNTER 2023-09-27 15:34 | Outpatient (AMB) | payer OTHER, SELFPAY ==
--- NOTE | 2023-09-27 15:36 | A.OFFPC_ITS ---
Vital Signs 09/27/23 15:37 Height 5 ft 2 in Weight 209 lb BMI 38.2 BP 108/72 Blood Pressure Location Lt brachial Position Sitting Intake Visit Reasons: Annual exam Intake Note: Patient here for an annual physical exam Gyn Physician Required: No Accompanied by: Self / Same As Patient Allergies penicillin V Allergy (Unknown, Verified 09/27/23 16:03) Rash Medication List - Last Reconciled 09/27/23 by Lalitha Rosales MD cetirizine 10 mg PO DAILY cyclobenzaprine 5 mg PO Q8H PRN 5 days fluticasone propionate 50 mcg/actuation (Flonase Allergy Relief) 2 sprays intranasal DAILY PRN hydroxychloroquine 200 mg PO BID lidocaine 5% (Lidoderm) 1 patch topical DAILY PRN MDD remove after 12 hours meloxicam 15 mg PO DAILY Tobacco use date assessed: 09/27/23 Dental Screening Dental Screen Date: 09/27/23 Did you have a dental visit in the last 12 months?: Yes Did you have a dental problem in the last 6 months where you did not have access to dental care?: No Was dental information given to patient?: Patient has dentist HPI HPI Comments History of Present Illness Details This is 38-year-old female with rheumatoid arthritis that comes for her physical exam. Last Pap smear was 2019 and next Pap smear will be next year. Rheumatoid arthritis is follow by Rheumatology and inflammation has decreased. No chest pain or shortness a breath. She is obese with a BMI of 38.2 and was advised to diet and exercise to reach BMI goal less than 30. [facility] Medical History (Updated 09/27/23 @ 16:08 by Lalitha Rosales MD) Dysuria Arthritis Lower back pain Patient denies significant medical history Surgical History History of appendectomy History of cholecystectomy H/O tubal ligation Family History Father No problems noted. Mother Diabetes Maternal Grandmother Breast cancer Diabetes Maternal Grandfather Past heart attack CVD (cardiovascular disease) Brother Brain cancer Maternal Uncle Colon cancer Social History Housing: House Alcohol intake: never Patient Tobacco Use Status: Never used Tobacco e-Cigarette/Vaping Use: Never Used Second Hand Smoke Exposure: No service: No Current occupational status: unemployed Gender identity: Female Cognitive needs: No Hearing needs: No Vision needs: Yes (glasses) Female Reproductive History Menstrual Age of Menarche: 12 Questionnaire PHQ-9 Over the last 2 weeks, how often have you been bothered by any of the following problems? 1. Little interest or pleasure in doing things: not at all 2. Feeling down, depressed, or hopeless: not at all 3. Trouble falling or staying asleep, or sleeping too much: not at all 4. Feeling tired or having little energy: not at all 5. Poor appetite or overeating: not at all 6. Feeling bad about yourself - or that you are a failure or have let yourself or your family down: not at all 7. Trouble concentrating on things, such as reading the newspaper or watching television: not at all 8. Moving or speaking so slowly that other people could have noticed. Or the opposite - being so fidgety or restless that you have been moving around a lot more than usual: not at all 9. Thoughts that you would be better off or of hurting yourself in some way: not at all Total score: 0 Depression Screening Interpretation: Negative Depression Screening Done: Yes 66803 - PHQ-9 Billing: Yes Source: Developed by Drs. Torin Kim, Hoda Garcia, Von Benjamin and colleagues, with an educational joyce from [employer]. Thrive Questionnaire Date Thrive assessed: 09/27/23 I am a: Patient What is your living situation today?: I have a steady place to live Within the past 12 months, did the food you bought not last and you didn't have the money to get more?: Never true Within the past 12 months, did you worry whether your food would run out before you got money to buy more?: Never true Do you have trouble paying for medicines?: No Do you have trouble getting transportation to medical appointments?: No Do you have trouble paying your heating and electricity bill?: No Do you have trouble taking care of your child, family member or friend?: No Do you have trouble with day-to-day activities such as bathing, preparing meals, shopping, managing finances, etc.?: No Are you currently unemployed and looking for a job?: No Are you interested in more education?: No Please select the resources that you would like help with: None Currently or been in a relationship where the following occur: no concerns reported THRIVE Score: 0 AUDIT C Alcohol Use Questionnaire (AUDIT-C) 1. How often do you have a drink containing alcohol?: Never Total Score: 0 Score Reviewed/Action Taken: No EBONY-7 AMB Questionnaire EBONY-7 Date EBONY - 7 assessed: 09/27/23 Feeling nervous, anxious, or on edge: 1 = Several days Not being able to stop or control worryin = Not at all Worrying too much about different things: 0 = Not at all Trouble relaxin = Not at all Being so restless that it is hard to sit still: 0 = Not at all Becoming easily annoyed or irritable: 0 = Not at all Feeling afraid as if something awful might happen: 0 = Not at all Total EBONY-7 score (0-4 normal; 5-9 mild; 10-14 moderate; 15-21 severe): 1 Source: Developed by Drs. Torin Kim, Hoda Garcia, Von Benjamin and colleagues, with an educational joyce from [employer]. EBONY-7 Assessment Billing EBONY-7 Assessment Tool: EBONY-7 Assessment 57907 Review of Systems Const All systems reviewed & are unremarkable except as noted in HPI and below Eyes Reports no additional complaints, Denies change in vision and Denies other visual disturbances Card Denies chest pain at rest, Denies chest pain with activity, Denies edema, Denies irregular heart rhythm, Denies claudication, Denies dyspnea, Denies dyspnea on exertion, Denies orthopnea, Denies paroxysmal nocturnal dyspnea and Denies slow heart rate Resp Denies cough, Denies dyspnea and Denies dyspnea on exertion GI Denies abdominal pain, Denies change in bowel habits, Denies excessive flatus, Denies nausea and Denies vomiting Denies urinary incontinence, Denies urinary hesitancy and Denies urinary urgency Musc Denies abnormal gait, Denies atrophy, Denies deformity and Denies limited range of motion Skin/Breast Denies bleeding lesions, Denies changing lesions and Denies rash Neuro Denies abnormal gait and Denies lack of coordination Physical exam (Primary Care) Vital Signs: Last Vital Signs BP 108/72 09/27/23 15:37 BMI result Body Mass Index 38.2 Tobacco/Smoking Status: Tobacco use Status Tobacco use date assessed 09/27/23 09/27/23 15:45 Patient Tobacco Use Status Never used Tobacco 09/27/23 15:45 e-Cigarette/Vaping Use Never Used 09/27/23 15:45 PHQ-9: PHQ-9 Score PHQ-9: Total score 0 09/27/23 16:07 Depression Screening Interpretation: Negative Thrive Assessment: Date of Thrive Assessment Date Thrive assessed 09/27/23 09/27/23 15:45 Currently or been in a relationship where the following occur: no concerns reported Const Orientation/consciousness: patient oriented x3 HENMT Head: Yes normal to inspection, Yes normocephalic and Yes atraumatic Ears: external ears normal Eyes General: appearance normal, both eyes and all related structures Eyelids: Yes eyelids normal Conjunctivae: conjunctivae normal Neck Neck: Yes normal visual inspection and Yes supple Resp Effort & Inspection: normal respiratory effort Auscultation: clear to auscultation bilaterally Cardio Jugular venous distension: no JVD Rate: regular rate Rhythm: regular rhythm Heart sounds: S1 normal heart sound present and S2 normal heart sound present GI Inspection: Yes normal to inspection Palpation (GI): Soft to palpation and nontender Auscultation: normal bowel sounds Skin General skin exam: no rashes or lesions noted Neuro General: patient oriented x3 and no focal motor deficits Extrem General: Yes full ROM Psych Appearance: grossly normal Assessment and Plan Assessment & Plan (1) Physical exam: Code(s): Z00.00 - Encounter for general adult medical examination without abnormal findings Plan: Repeat in a year. (2) Seronegative rheumatoid arthritis: Comment: dx 03/2023 HCQ 03/2023 effective Code(s): M06.00 - Rheumatoid arthritis without rheumatoid factor, unspecified site Plan: Continue hydroxychloroquine. Follow-up with rheumatology. Orders: Orders Lipid Panel Today Z00.00 - Encounter for general adult medical examination without abnormal findings Coding Level of Care Code Est Pt Prev Care 18-39y(33237) Diagnoses Physical exam Z00.00 Seronegative rheumatoid arthritis M06.00 Additional Codes EBONY-7 Assessment Billing - EBONY-7 Assessment Tool: EBONY-7 Assessment 13135 ([id number]) Time Spent (min) 31
[2023-09-27 15:37] VITALS: BP 108/72; BMI 38.2
== END 2023-09-27 16:13 | disposition home or self-care (01) ==
LOC: HO.HMGH 15:35
PROVIDERS: PCP Internal Medicine; Visit Provider Internal Medicine
DX: Z00.00 Encounter for general adult medical examination without abnormal findings (principal); M06.00 Rheumatoid arthritis without rheumatoid factor, unspecified site
CPT/HCPCS: 99395

== ENCOUNTER 2024-10-01 16:48 | Outpatient (AMB) | payer OTHER, SELFPAY ==
--- NOTE | 2024-10-01 16:51 | A.OFFPC_ITS ---
Vital Signs 10/01/24 16:53 Height 5 ft 2 in Weight 205 lb BMI 37.5 BP 110/64 Blood Pressure Location Lt brachial Position Sitting Intake Visit Reasons: annual exam Intake Note: Patient here for a physical exam Property Manager Required: No Accompanied by: Self / Same As Patient Allergies penicillin V Allergy (Unknown, Verified 10/01/24 17:02) Rash Medication List - Last Reconciled 10/01/24 by Lalitha Rosales MD No Known Home Meds Tobacco use date assessed: 10/01/24 Dental Screening Dental Screen Date: 10/01/24 Did you have a dental visit in the last 12 months?: Yes Did you have a dental problem in the last 6 months where you did not have access to dental care?: No Was dental information given to patient?: Patient has dentist HPI HPI Comments History of Present Illness Details The patient is a 39-year-old female presenting for her annual physical examination. Her last Papanicolaou test was conducted in 2019 and returned negative for Human Papillomavirus (HPV). She has not undergone any subsequent Pap tests since that time. It is brought up that a follow-up test is due in the current year to maintain preventive health measures. In terms of surgical history, the patient has undergone a cholecystectomy, appendectomy, and tubal ligation in 2012 for family planning. Regarding her family medical history, her mother has a diagnosis of diabetes mellitus, while her father has reported no known health issues. The patient denies having any active medication regimens and has an allergy to penicillin, which causes a rash. She reports no history of smoking or alcohol use and denies any recent feelings of depression or anxiety. - Pap smear conducted in 2019; HPV negat patrizia - Patient is due for follow-up Pap smear and HPV screening - Advised fasting laboratories for lipid panel, glucose levels, and renal and hepatic function tests PFSH Medical History Dysuria Arthritis Lower back pain Patient denies significant medical history Surgical History History of appendectomy History of cholecystectomy H/O tubal ligation Family History Father No problems noted. Mother Diabetes Maternal Grandmother Breast cancer Diabetes Maternal Grandfather Past heart attack CVD (cardiovascular disease) Brother Brain cancer Maternal Uncle Colon cancer Social History Housing: House Alcohol intake: never Patient Tobacco Use Status: Never used Tobacco e-Cigarette/Vaping Use: Never Used Second Hand Smoke Exposure: No service: No Current occupational status: unemployed Gender identity: Female Cognitive needs: No Hearing needs: No Vision needs: Yes (glasses) Female Reproductive History Menstrual Age of Menarche: 12 Questionnaire PHQ-9 Over the last 2 weeks, how often have you been bothered by any of the following problems? 1. Little interest or pleasure in doing things: not at all 2. Feeling down, depressed, or hopeless: not at all 3. Trouble falling or staying asleep, or sleeping too much: not at all 4. Feeling tired or having little energy: not at all 5. Poor appetite or overeating: not at all 6. Feeling bad about yourself - or that you are a failure or have let yourself or your family down: not at all 7. Trouble concentrating on things, such as reading the newspaper or watching television: not at all 8. Moving or speaking so slowly that other people could have noticed. Or the opposite - being so fidgety or restless that you have been moving around a lot more than usual: not at all 9. Thoughts that you would be better off or of hurting yourself in some way: not at all Total score: 0 Depression Screening Interpretation: Negative Depression Screening Done: Yes 04958 - PHQ-9 Billing: Yes Source: Developed by Drs. Torin Kim, Hoda Garcia, Von Benjamin and colleagues, with an educational joyce from [employer]. Thrive Questionnaire Date Thrive assessed: 10/01/24 I am a: Patient What is your living situation today?: I have a steady place to live Within the past 12 months, did the food you bought not last and you didn't have the money to get more?: Never true Within the past 12 months, did you worry whether your food would run out before you got money to buy more?: Never true Do you have trouble paying for medicines?: No Do you have trouble getting transportation to medical appointments?: No Do you have trouble paying your heating and electricity bill?: No Do you have trouble taking care of your child, family member or friend?: No Do you have trouble with day-to-day activities such as bathing, preparing meals, shopping, managing finances, etc.?: No Are you currently unemployed and looking for a job?: No Are you interested in more education?: No Please select the resources that you would like help with: None Currently or been in a relationship where the following occur: No concerns reported THRIVE Score: 0 AUDIT C Alcohol Use Questionnaire (AUDIT-C) 1. How often do you have a drink containing alcohol?: Never Total Score: 0 Score Reviewed/Action Taken: No EBONY-7 AMB Questionnaire EBONY-7 Date EBONY - 7 assessed: 10/01/24 Feeling nervous, anxious, or on edge: 0 = Not at all Not being able to stop or control worryin = Not at all Worrying too much about different things: 0 = Not at all Trouble relaxin = Not at all Being so restless that it is hard to sit still: 0 = Not at all Becoming easily annoyed or irritable: 0 = Not at all Feeling afraid as if something awful might happen: 0 = Not at all Total EBONY-7 score (0-4 normal; 5-9 mild; 10-14 moderate; 15-21 severe): 0 Source: Developed by Drs. Torin Kim, Hoda Garcia, Von Benjamin and colleagues, with an educational joyce from [employer]. EBONY-7 Assessment Billing EBONY-7 Assessment Tool: EBONY-7 Assessment 39120 Review of Systems Const All systems reviewed & are unremarkable except as noted in HPI and below Card Denies chest pain at rest, Denies chest pain with activity, Denies edema, Denies irregular heart rhythm, Denies claudication, Denies dyspnea, Denies dyspnea on exertion, Denies orthopnea, Denies paroxysmal nocturnal dyspnea and Denies slow heart rate Resp Denies cough, Denies dyspnea and Denies dyspnea on exertion GI Denies abdominal pain, Denies change in bowel habits, Denies excessive flatus, Denies nausea and Denies vomiting Physical exam (Primary Care) Vital Signs: Last Vital Signs BP 110/64 10/01/24 16:53 BMI result Body Mass Index 37.5 BMI Assessment/Plan discussion: High BMI High, discussed plan: lifestyle, weight reduction, dietary and physical activity Tobacco/Smoking Status: Tobacco use Status Tobacco use date assessed 10/01/24 10/01/24 16:59 Patient Tobacco Use Status Never used Tobacco 10/01/24 16:59 e-Cigarette/Vaping Use Never Used 10/01/24 16:59 PHQ-9: PHQ-9 Score PHQ-9: Total score 0 10/01/24 17:06 Depression Screening Interpretation: Negative Thrive Assessment: Date of Thrive Assessment Date Thrive assessed 10/01/24 10/01/24 16:59 Currently or been in a relationship where the following occur: No concerns reported HENMT Head: Yes normal to inspection, Yes normocephalic and Yes atraumatic Ears: external ears normal Eyes General: appearance normal, both eyes and all related structures Eyelids: Yes eyelids normal Conjunctivae: conjunctivae normal Neck Neck: Yes normal visual inspection and Yes supple Resp Effort & Inspection: normal respiratory effort Auscultation: clear to auscultation bilaterally Cardio Jugular venous distension: no JVD Rate: regular rate Rhythm: regular rhythm Heart sounds: S1 normal heart sound present and S2 normal heart sound present GI Inspection: Yes normal to inspection Palpation (GI): Soft to palpation and nontender Auscultation: normal bowel sounds Skin General skin exam: no rashes or lesions noted Neuro General: no focal motor deficits Extrem General: Yes full ROM Psych Appearance: grossly normal Coding Level of Care Code Est Pt Prev Care 18-39y(32974) Diagnoses Physical exam Z00.00 Additional Codes EBONY-7 Assessment Billing - EBONY-7 Assessment Tool: EBONY-7 Assessment 68682 ([id number]) PHQ-9 - 32114 - PHQ-9 Billing: Yes ([id number]) Time Spent (min) 32 Assessment & Plan Assessment & Plan (1) Physical exam: Code(s): Z00.00 - Encounter for general adult medical examination without abnormal findings Category: Medical Plan For the patient?s annual physical examination, critical steps have been outlined to ensure comprehensive preventive care. I scheduled a follow-up Pap smear since her last screening in 2019 was negative for HPV, and I arranged for the necessary laboratory investigations for lipids, glucose, renal, and hepatic panels. Considering her penicillin allergy, alternative options for infectious disease treatment are noted should the need arise. There is no indication for any changes related to her past surgeries including appendectomy, cholecystectomy, and tubal ligation. It's critical to keep her family history of diabetes mellitus in focus when interpreting future diagnostic results, though no immediate concern has been identified presently. Social habits including no tobacco or alcohol use contribute positively to her overall health profile. Patient was informed and verbally consented to the use of an ambient scribe for clinic note documentation during this visit. During the consultation, I discussed with the patient the necessity of undergoing a new Pap smear test since more than three years have passed since her last examination in 2019 that showed no presence of HPV. The benefits and necessity of regular cervical screening were emphasized for the prevention of cervical cancer development. We also addressed her lab work scheduled for today to maintain vigilance in health surveillance and promote early identification of potential issues related to cholesterol, blood sugar, liver, and kidney functions. The patient is aware of her allergy to penicillin and concurs with the proposed preventative measures, understanding the rationale and benefits involved. Orders: Orders Lipid Panel Today Z00.00 - Encounter for general adult medical examination without abnormal findings Comprehensive [place]. Panel Fast Today Z00.00 - Encounter for general adult m edical examination without abnormal findings Referrals TOBACCO CURER Referral Z12.4 - Encounter for screening for malignant neoplasm of cervix Patient Instructions: - Schedule Pap smear as discussed with gynecology referral - Complete fasting blood work to check cholesterol, glucose, kidney, and liver function - Continue to avoid penicillin due to allergic reaction - Follow a healthy lifestyle, incorporating exercise and balanced nutrition - Monitor family blood sugar history and report any concerns - Return for follow-up or seek care if experiencing any new symptoms or health changes
[2024-10-01 16:53] VITALS: BP 110/64; BMI 37.5
== END 2024-10-01 17:12 | disposition home or self-care (01) ==
LOC: HO.HMCH 16:49
PROVIDERS: PCP Internal Medicine; Visit Provider Internal Medicine
DX: Z00.00 Encounter for general adult medical examination without abnormal findings (principal)

== ENCOUNTER → 2024-10-01 16:48 | Outpatient (BNVA) | payer OTHER, SELFPAY | PROVIDERS: PCP Internal Medicine; Visit Provider Internal Medicine | DX: Z00.00 Encounter for general adult medical examination without abnormal findings (principal) | CPT/HCPCS: 96127 ==

== ENCOUNTER 2024-11-20 12:54 | Outpatient (AMB) | payer OTHER, SELFPAY ==
[2024-11-20 12:56] VITALS: BP 134/62; PULSE 66; TEMP 36.8; O2SAT 97; BMI 38.0
--- NOTE | 2024-11-20 12:56 | AM.OFFWIN_ITS ---
Intake Vital Signs 11/20/24 12:56 Height 5 ft 2 in Weight 208 lb BMI 38.0 BP 134/62 Blood Pressure Location Rt brachial Position Sitting Pulse 66 Pulse Source Pulse Oximeter Temp 98.3 F Temp Source Oral Pulse Oximetry (%) 97 Oxygen Delivery Method Room Air Intake Visit Reasons: EP Bad Sunburn Patient Tobacco Use Status: Never used Tobacco Dye House Hand Required: No Is last menstrual period known: Yes Last menstrual period: 11/05/24 Post menopausal: No Patient : No Allergies penicillin V Allergy (Unknown, Verified 11/20/24 13:02) Rash Do you need a note to return to daycare/school/sports/work: No HPI HPI Comments History of Present Illness Details She presents to office with sunburn She was in [place] and got back Monday Occured Monday Located on chest wall and blisters L shoulder that popped She has been using banana [place] aloe vera and vitamin E Minimal relief Pain level is 7/10 + chills without relief Arms as well but no pain to back or extremities PFSH Medical History Dysuria Arthritis Lower back pain Patient denies significant medical history Surgical History History of appendectomy History of cholecystectomy H/O tubal ligation Family History Father No problems noted. Mother Diabetes Maternal Grandmother Breast cancer Diabetes Maternal Grandfather Past heart attack CVD (cardiovascular disease) Brother Brain cancer Maternal Uncle Colon cancer Social History Housing: House Alcohol intake: never Patient Tobacco Use Status: Never used Tobacco e-Cigarette/Vaping Use: Never Used Second Hand Smoke Exposure: No Patient : No service: No Current occupational status: unemployed Gender identity: Female Cognitive needs: No Hearing needs: No Vision needs: Yes (glasses) Female Reproductive History Menstrual Age of Menarche: 12 Date of last menstrual period: 11/05/24 Physical Exam Vital Signs: Last Vital Signs Temp 98.3 F 11/20/24 12:56 BP 134/62 11/20/24 12:56 BMI result Body Mass Index 38.0 General: Non-toxic, NAD. Speaking full sentences. Skin: Warm dry throughout. Pt has red discoloration to anterior neck, chest wall, shoulders and upper back. L anterior shoulder she has small area of skin break down with raw red tissue exposed. No discharge. + deep purple/red discoloration along mid breast region where bathing suit top border was. No abscesses or boils. Eye: EOMI HENT: Airway patent. Uvula midline. No pharyngeal erythema or edema. No ACCOUNTING ADVISORY SERVICES MANAGER. Respiratory: CTA bilaterally. No wheezes, rales or rhonchi Cardiac: RRR. No murmur Neurology: Alert. No aphasia or facial droop. Gait without abnormality Psych: Good mood and affect Assessment & Plan Assessment & Plan (1) Sunburn: Code(s): L55.9 - Sunburn, unspecified Plan: mupirocin on L shoulder region Licodaine aloe to other areas Avoid sun exposure Tylenol/Motrin for discomfort Call office with concerns and pt gave verbal understanding and had no additional questions at time of discharge Medications: New mupirocin 2% 1 appl topical BID 1 ea 0RF lidocaine-aloe vera 0.5 % 1 appl topical BID 227 grams 0RF Coding Level of Care Code Est Pt Level 3 (87226) Diagnoses Sunburn L55.9
== END 2024-11-20 13:48 | disposition home or self-care (01) ==
PROVIDERS: PCP Internal Medicine; Visit Provider Physician Assistant
DX: L55.9 Sunburn, unspecified (principal)

== ENCOUNTER 2025-02-16 10:07 | Emergency (ER) | payer OTHER, SELFPAY ==
--- NOTE | ~2025-02-16 | XR_ITS ---
CLINICAL HISTORY: back pain after bending 3 views lumbar spine Comparison: None provided Findings: Normal vertebral body alignment. No acute fractures or dislocation. Minimal disc space narrowing at L5-S1. IMPRESSION: No acute findings. Minimal disc space narrowing at L5-S1. This document has been electronically signed by: Tuan Cuellar MD on 02/16/2025 10:49:14
[2025-02-16 10:11] VITALS: BP 123/60; PULSE 69; RESP 20; TEMP 36.1; O2SAT 94; BMI 36.9
--- NOTE | 2025-02-16 10:53 | ED_ITS ---
HPI - General Adult General Chief complaint: Back Pain/Injury Stated complaint: low back pain Time Seen by Provider: 02/16/25 10:52 Source: patient, RN notes reviewed and old records reviewed Mode of arrival: ambulatory Limitations: no limitations History of Present Illness ED Provider: Jasmin [facility] narrative: Patient is a 39-year-old female with no reported past medical history presenting to the emergency department with complaint of lower back pain since yesterday. Reports that she bent over to pick something up and this is when her pain began. She denies fall or other trauma. Denies radiation of pain to lower extremities. Denies saddle anesthesia or bowel or bladder incontinence. Denies fevers, IV drug use, history of cancer. Take naproxen at home with little relief. Denies any history of previous back pain or injuries. MD complaint: back pain Related Data Previous Rx's ?Medication ?Instructions ?Recorded lidocaine-aloe vera 0.5 % topical 1 appl topical BID # 227 grams 11/20/24 gel mupirocin 2 % ointment topical kit 1 appl topical BID #1 ea 11/20/24 cyclobenzaprine 10 mg tablet 10 mg PO TID PRN muscle s pasm #10 02/16/25 tabs lidocaine 5 % topical patch 1 patch topical DAILY #15 ea 02/16/25 naproxen 500 mg tablet 500 mg PO BID #14 tabs 02/16 Allergies Allergy/AdvReac Type Severity Reaction Status Date / Time penicillin V Allergy Unknown Rash Verified 02/16/25 10:12 Review of Systems Review of Systems: as per hpi Yes all other systems are reviewed and are negative Constitutional: Constitutional: Reports as per HPI PMFSH Past Medical History Medical History Dysuria Arthritis Lower back pain Patient denies significant medical history Surgical History History of appendectomy History of cholecystectomy H/O tubal ligation Family History Family History Father No problems noted. Mother Diabetes Maternal Grandmother Breast cancer Diabetes Maternal Grandfather Past heart attack CVD (cardiovascular disease) Brother Brain cancer Maternal Uncle Colon cancer Social History Social History Housing: House Alcohol intake: never Patient Tobacco Use Status: Never used Tobacco Smoked in Last 30 Days: No e-Cigarette/Vaping Use: Never Used Second Hand Smoke Exposure: No Use of substances other than those prescribed or required for medical reasons: No Advance Directives: No Advance Directives Information Provided: No Do you have a plan to hurt others: No Plan Patient : No service: No Current occupational status: unemployed Gender identity: Female Cognitive needs: No Hearing needs: No Vision needs: Yes (glasses) Physical Exam ED Vital Signs: Vital Signs - 24 hr 02/16/25 10:11 02/16/25 11:20 02/16/25 14:18 Temperature 96.9 F 97.9 F 97.9 F Pulse Rate 69 61 62 Respiratory Rate 20 14 16 Blood Pressure 123/60 101/53 L 96/36 L Pulse Oximetry 94 97 97 Oxygen Delivery Method Room Air Room Air Room Air BMI result Body Mass Index 36.9 Vital signs have been reviewed and appear to be correct. Blood pressure normal. Heart rate normal. Respiratory rate normal. Temperature normal. Oxygen saturation normal. Const General: cooperative, healthy appearing and no acute distress Orientation/consciousness: oriented to person, oriented to place, oriented to time and patient oriented x3 Limitations: no limitations HENMT Head: Yes normocephalic and Yes atraumatic Ears: external ears normal General nose exam: Normal external nose present Face and sinus: Yes face symmetric Mouth: oropharynx normal and moist mucous membranes Throat: Yes uvula midline Eyes Pupils: Equal, round and reactive pupils present Neck Neck: Yes normal visual inspection and Yes supple Resp Effort & Inspection: normal respiratory effort and able to speak in complete sentences Auscultation: clear to auscultation bilaterally Cardio Rate: regular rate Rhythm: regular rhythm Heart sounds: S1 normal heart sound present and S2 normal heart sound present GI Palpation (GI): Soft to palpation and nontender Auscultation: normoactive bowel sounds General: Yes no CVA tenderness Back/Spine/Pelvis Back: no CVA tenderness Thoracic/Lumbar Spine: thoracic and lumbar spine normal to inspection, thoraco- lumbar ROM normal, straight leg raise negative bilaterally, pain with thoraco- lumbar ROM, paraspinal muscle tenderness bilaterally (L>R) in the mid lumbar and in the lower lumbar, No thoracic spinal tenderness and No lumbar spinal tenderness Skin General skin exam: elasticity normal and turgor normal Neuro General: oriented to person, oriented to place, oriented to time, patient oriented x3, gait normal, tone normal, moves all extremities, Normal light touch and pain sensation, no focal motor deficits, CN's II-XI intact bilaterally and deep tendon reflexes 2+ bilaterally Cranial nerves: Yes Equal, round and reactive pupils present Cognition (Neuro): normal cognition Motor exam (neuro): 5/5 motor strength present throughout, Normal motor muscle tone present throughout and Motor abnormalities not present Extrem General: Yes full ROM, Yes no pedal edema and Yes no calf tenderness Psych Mental Status: mental status grossly normal Affect: normal affect Thought process: Normal thought process present Medications Administered Discontinued Medications Generic Name Dose Route Start Last Admin Trade Name Jamaalq PRN Reason Stop Dose Admin Diazepam 5 mg 02/16/25 11:02 02/16/25 11:31 Diazepam 10 Mg/2 Ml Cartridge IM 02/16/25 11:03 5 mg STAT STA Administration Hydromorphone HCl 1 mg 02/16/25 13:26 02/16/25 14:14 Hydromorphone Hcl 1 Mg/Ml Syringe IM 02/16/25 13:27 1 mg ONCE ONE Administration Protocol Ketorolac Tromethamine 30 mg 02/16/25 11:02 02/16/25 11:31 Ketorolac Tromethamine 30 Mg/Ml Vial IM 02/16/25 11:03 30 mg ONCE ONE Administration Medical Decision Making Medical Decision Making [facility] Narrative: Patient is a 39-year-old female with no reported past medical history presenting to the emergency department with complaint of lower back pain since yesterday. On exam patient is awake, A+Ox3, VS WNL, afebrile, normal neurological exam without focal deficits, physical exam findings as above. Given reported symptoms and physical exam findings, initial differential includes but is not limited to initial differential includes lumbar strain, lumbar radiculopathy, degenerative disc disease, disc herniation, spinal stenosis, spondylosis. Less likely vertebral fracture. Do not suspect malignancy/mass, SEA, cauda equina/cord compression. X-ray lumbar spine notable for no acute fracture or subluxation. My interpretation is in agreement with the radiologist's interpretation. Patient medicated with Valium and Toradol without any relief. Patient then medicated with Dilaudid with good relief of pain. Feel she is able to be discharged home to continue taking oral medications there. Advised follow up with PCP as she may require referral to physical therapy. Strict return precautions discussed at bedside. will drive her home. Patient verbalized understanding of and agreement with plan. Differential Diagnosis Differential Diagnoses: The differential diagnosis associated with the presentation includes As per [facility] Admission/Observation Consideration of admission/observation: Escalation of care including admission/observation considered Patient would have been admitted to the hospital and transferred to appropriate facility had their clinical presentation warranted hospital admission. Independent Interpretation I performed an independent interpretation of an: Plain X-Ray Interpretation: Lumbar x-ray without evidence of fracture or subluxation Radiology Impression Discussion of test interpretation with radiology: I have reviewed the radiologist's reading. Radiologist Impression: 3 views lumbar spine Comparison: None provided Findings: Normal vertebral body alignment. No acute fractures or dislocation. Minimal disc space narrowing at L5-S1. IMPRESSION: No acute findings. Minimal disc space narrowing at L5-S1. External Record Review External record reviewed: Inpatient record, Office record and Outpatient record Prescription Management I considered prescription management with: Pain Medication and Other Discharge Plan Discharge Clinical Impression: Strain of lumbar region Patient Disposition: Home, Self-Care Instructions: Low Back Strain (ED), Lower Back Exercises (ED) Additional Instructions: You were evaluated in the emergency department today for back pain. Your evaluation did not show signs of medical conditions requiring emergent intervention at this time. You have been prescribed naproxen to decrease pain and inflammation. You have been prescribed a muscle relaxer called Flexeril (cyclobenzaprine) which you may take every 8 hours as needed for spasms. Do not drive, drink alcohol, or operate heavy machinery while taking this as it can cause drowsiness. You have been prescribed 5% topical lidocaine patches which you can wear for up to 12 hours in a 24 hour period. Do not apply heat directly over the patches. Please schedule an appointment for follow-up with your primary care physician this week for further evaluation of your symptoms. Return to the emergency department if you experience worsening back pain, difficulty walking, fevers, numbness, tingling, incontinence, groin numbness or tingling, or any other concerning symptoms. Prescriptions: New naproxen 500 mg tablet 500 mg PO BID Qty: 14 0RF cyclobenzaprine 10 mg tablet 10 mg PO TID PRN (Reason: muscle spasm) Qty: 10 0RF lidocaine 5 % adhesive patch,medicated 1 patch topical DAILY Qty: 15 0RF Rx Instructions: leave on most painful area for up to 12 hrs No Action lidocaine-aloe vera 0.5 % gel 1 appl topical BID Qty: 227 0RF mupirocin 2 % ointment kit 1 appl topical BID Qty: 1 0RF Print Language: Algerian
[2025-02-16 11:20] VITALS: BP 101/53; PULSE 61; RESP 14; TEMP 36.6; O2SAT 97
--- NOTE | 2025-02-16 11:22 | PC.NURSE ---
Patient presents to ED c/o low back pain rated 10/10 Patient bent down to cone picker a blanket yesterday when the pain started +CMS +ROM VSS and up to date Patient medicated with valium and toradol per JUL Xray = minimal spacing between L and S Provider in to see patient Plan of care on going
[2025-02-16] MEDS: diazePAM 10 MG/2 ML CARTRIDGE 5 MG IM (11:31)
[2025-02-16 14:18] VITALS: BP 96/36; PULSE 62; RESP 16; TEMP 36.6; O2SAT 97
[2025-02-16 15:15] VITALS: BP 96/36; PULSE 62; RESP 16; TEMP 36.6; O2SAT 97
== END 2025-02-16 15:16 | disposition home or self-care (01) ==
PROVIDERS: Emergency Provider Emergency Medicine; PCP Internal Medicine
DX: S39.012A Strain of muscle, fascia and tendon of lower back, initial encounter (principal); X50.1XXA Overexertion from prolonged static or awkward postures, initial encounter; Y93.89 Activity, other specified; Y92.9 Unspecified place or not applicable; Y99.9 Unspecified external cause status
CPT/HCPCS: 72100; 96372; 99284; J1171; J1885; J3360

== ENCOUNTER → 2025-02-16 10:30 | Outpatient (BNV) | payer OTHER, SELFPAY | PROVIDERS: Emergency Provider Emergency Medicine; PCP Internal Medicine; Visit Provider Radiology Vascular & Interventional Radiology | DX: M54.50 Low back pain, unspecified (principal) | CPT/HCPCS: 72100 ==

== ENCOUNTER 2025-02-19 16:27 | Outpatient (AMB) | payer OTHER, SELFPAY ==
[2025-02-19 16:45] VITALS: BP 106/78; PULSE 67; O2SAT 97; BMI 38.7
--- NOTE | 2025-02-19 16:45 | MHC.PC.OV ---
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 Accompanied by: Self / Same As Patient Allergies penicillin V Allergy (Unknown, Verified 02/19/25 16:45) Rash Medication List - Last Reconciled 02/19/25 by Cuco Dukes MD cyclobenzaprine 10 mg PO TID PRN ibuprofen 800 mg PO Q8H PRN lidocaine 5% 1 patch topical DAILY lidocaine-aloe vera 0.5 % 1 appl topical BID mupirocin 2% 1 appl topical BID naproxen 500 mg PO BID Tobacco use date assessed: 02/19/25 Dental Screening Dental Screen Date: 02/19/25 Did you have a dental visit in the last 12 months?: Yes Did you have a dental problem in the last 6 months where you did not have access to dental care?: No Was dental information given to patient?: Patient has dentist HPI HPI Comments History of Present Illness Details The patient is a 39-year-old female presenting with back pain. The pain began on Monday and is described as severe, affecting her ability to stand for long periods and causing significant discomfort. She reports that the pain is localized from one area to another, and previous x-rays did not reveal any significant findings. The patient has tried various interventions including cyclobenzaprine, naproxen, heat application, and Icy Hot patches, none of which have provided relief. Morphine injection in the hospital provided temporary relief, but the pain returned once the effects wore off. Recent Xray with no pertinent findings. [facility] Medical History Dysuria Arthritis Lower back pain Patient denies significant medical history Surgical History History of appendectomy History of cholecystectomy H/O tubal ligation Family History Father No problems noted. Mother Diabetes Maternal Grandmother Breast cancer Diabetes Maternal Grandfather Past heart attack CVD (cardiovascular disease) Brother Brain cancer Maternal Uncle Colon cancer Social History Housing: House Alcohol intake: never Patient Tobacco Use Status: Never used Tobacco e-Cigarette/Vaping Use: Never Used Second Hand Smoke Exposure: No service: No Current occupational status: unemployed Gender identity: Female Cognitive needs: No Hearing needs: No Vision needs: Yes (glasses) Female Reproductive History Menstrual Age of Menarche: 12 Questionnaire PHQ-9 Over the last 2 weeks, how often have you been bothered by any of the following problems? 1. Little interest or pleasure in doing things: several days 2. Feeling down, depressed, or hopeless: not at all 3. Trouble falling or staying asleep, or sleeping too much: not at all 4. Feeling tired or having little energy: not at all 5. Poor appetite or overeating: not at all 6. Feeling bad about yourself - or that you are a failure or have let yourself or your family down: not at all 7. Trouble concentrating on things, such as reading the newspaper or watching television: not at all 8. Moving or speaking so slowly that other people could have noticed. Or the opposite - being so fidgety or restless that you have been moving around a lot more than usual: not at all 9. Thoughts that you would be better off or of hurting yourself in some way: not at all Total score: 1 Source: Developed by Drs. Torin Kim, Hoda Garcia, Von Benjamin and colleagues, with an educational joyce from [employer]. Thrive Questionnaire Date Thrive assessed: 10/01/24 I am a: Patient What is your living situation today?: I have a steady place to live Within the past 12 months, did the food you bought not last and you didn't have the money to get more?: I choose not to answer this question Within the past 12 months, did you worry whether your food would run out before you got money to buy more?: I choose not to answer this question Do you have trouble paying for medicines?: I choose not to answer this question Do you have trouble getting transportation to medical appointments?: I choose not to answer this question Do you have trouble paying your heating and electricity bill?: I choose not to answer this question Do you have trouble taking care of your child, family member or friend?: I choose not to answer this question Do you have trouble with day-to-day activities such as bathing, preparing meals, shopping, managing finances, etc.?: I choose not to answer this question Are you currently unemployed and looking for a job?: I choose not to answer this question Are you interested in more education?: I choose not to answer this question Please select the resources that you would like help with: None Currently or been in a relationship where the following occur: No concerns reported THRIVE Score: 0 AUDIT C Alcohol Use Questionnaire (AUDIT-C) 1. How often do you have a drink containing alcohol?: Never 3. How often do you have six or more drinks on one occasion?: Never Total Score: 0 EBONY-7 AMB Questionnaire EBONY-7 Date EBONY - 7 assessed: 10/01/24 Feeling nervous, anxious, or on edge: 0 = Not at all Not being able to stop or control worryin = Not at all Worrying too much about different things: 0 = Not at all Trouble relaxin = Not at all Being so restless that it is hard to sit still: 0 = Not at all Becoming easily annoyed or irritable: 0 = Not at all Feeling afraid as if something awful might happen: 0 = Not at all Total EBONY-7 score (0-4 normal; 5-9 mild; 10-14 moderate; 15-21 severe): 0 Source: Developed by Drs. Torin Kim, Hoda Garcia, Von Benjamin and colleagues, with an educational joyce from [employer]. Review of Systems Const Details: Positives besides what was mentioned in HPI are in BOLD Constitutional: No Weight Change, No Fever, No Chills, No Night Sweats, No Fatigue, No Malaise ENT/Mouth: No Hearing Changes, No Ear Pain, No Nasal Congestion, No Sinus Pain, No Hoarseness, No sore throat, No Rhinorrhea, No Swallowing Difficulty Eyes: No Eye Pain, No Swelling, No Redness, No Foreign Body, No Discharge, No Vision Changes Cardiovascular: No Chest Pain, No SOB, No PND, No Dyspnea on Exertion, No Orthopnea, No Claudication, No Edema, No Palpitations Respiratory: No Cough, No Sputum, No Wheezing, No Smoke Exposure, No Dyspnea Gastrointestinal: No Nausea, No Vomiting, No Diarrhea, No Constipation, No Pain, No Heartburn, No Anorexia, No Dysphagia, No Hematochezia, No Melena, No Flatulence, No Jaundice Genitourinary: No Dysmenorrhea, No DUB, No Dyspareunia, No Dysuria, No Urinary Frequency, No Hematuria, No Urinary Incontinence, No Urgency, No Flank Pain, No Urinary Flow Changes, No Hesitancy Musculoskeletal: No Arthralgias, No Myalgias, No Joint Swelling, No Joint Stiffness, No Back Pain, No Neck Pain, No Injury History Skin: No Skin Lesions, No Pruritis, No Hair Changes, No Breast/Skin Changes, No Nipple Discharge Neuro: No Weakness, No Numbness, No Paresthesias, No Loss of Consciousness, No Syncope, No Dizziness, No Headache, No Coordination Changes, No Recent Falls Psych: No Anxiety/Panic, No Depression, No Insomnia, No Personality Changes, No Delusions, No Rumination, No SI/HI/AH/VH, No Social Issues, No Memory Changes, No Violence/Abuse Hx., No Eating Concerns Heme/Lymph: No Bruising, No Bleeding, No Transfusions History, No Lymphadenopathy Endocrine: No Polyuria, No Polydipsia, No Temperature Intolerance Physical exam (Primary Care) Vital Signs: Last Vital Signs Pulse 67 02/19/25 16:45 BP 106/78 02/19/25 16:45 Pulse Ox 97 02/19/25 16:45 Oxygen Delivery Method Room Air 02/19/25 16:45 BMI result Body Mass Index 38.7 Tobacco/Smoking Status: Tobacco use Status Tobacco use date assessed 02/19/25 02/19/25 16:46 Patient Tobacco Use Status Never used Tobacco 02/19/25 16:46 e-Cigarette/Vaping Use Never Used 02/19/25 16:46 PHQ-9: PHQ-9 Score PHQ-9: Total score 1 02/19/25 16:46 Thrive Assessment: Date of Thrive Assessment Date Thrive assessed 10/01/24 02/19/25 16:46 Currently or been in a relationship where the following occur: No concerns reported Const Other: Pertinent findings are in BOLD GENERAL APPEARANCE NAD, activity normal for age, well developed/ well nourished, no cyanosis, pallor, or diaphoresis. EYES lids/conjunctiva normal. EARS/NOSE/THROAT Mucous membranes moist, nares normal, lips/teeth normal uvula midline without oral pharyngeal erythema, exudate or swelling TMs normal bilaterally. No lymphangitis/lymphedema. HEAD/NECK normocephalic atraumatic, no facial trauma, neck is supple. RESPIRATORY respiratory effort normal, speaks in full sentences, no tripod position, no accessory muscle use. Lungs clear to auscultation without rhonchi, wheezes, rales CARDIAC Regular rate and rhythm, no edema. ABDOMINAL Soft, ND/NT. No evidence of fluid wave. No pulsatile masses on exam, rebound tenderness, Dempsey sign or pain over Mcburney's point. MUSCLES/EXTREMITIES No abnormal range of motion, no swelling. Muscle tightness in Left lower back. SKIN Warm, pink and dry. No rashes, dermatoses, petechiae or lesions. NEUROLOGICAL Speech is clear and appropriate. Normal level of consciousness. Gait and coordination are normal. 5/5 strength in all extremities. PSYCH Normal mood and affect. Judgement/competence is appropriate Coding Level of Care Code Est Pt Level 3 (04464) Diagnoses Acute low back pain, unspecified back pain laterality, unspecified whether sciatica present M54.5 Chronicity: acute Back pain laterality: unspecified Sciatica presence: unspecified whether sciatica present Assessment & Plan Assessment & Plan (1) Lower back pain: Code(s): M54.5 - Low back pain Category: Medical Qualifiers: Chronicity: acute Back pain laterality: unspecified Sciatica presence: unspecified whether sciatica present Qualified Code(s): M54.5 - Low back pain Plan: - Prescribed high-dose ibuprofen 800 mg every 8 hours to manage pain. - Advised alternating ibuprofen with Tylenol 650 mg every 8 hours for additional pain relief. - Recommended discontinuation of naproxen due to lack of efficacy and similarity to ibuprofen. - Suggested using cyclobenzaprine only at night to avoid daytime sedation. - Encouraged light activity and stretching to aid recovery. Plan During the visit, we discussed the management of the patient's low back pain, including the use of high-dose ibuprofen and alternating with Tylenol for pain relief. I advised discontinuing naproxen and using cyclobenzaprine only at night to minimize sedation. We also talked about the importance of light activity and stretching to aid recovery. Medications: New acetaminophen ER (Tylenol Arthritis Pain) 650 mg PO Q8H PRN 30 tabs 0RF pain ibuprofen 800 mg PO Q8H PRN 30 tabs 1RF pain
== END 2025-02-19 17:14 | disposition home or self-care (01) ==
LOC: HO.HMCH 16:28
PROVIDERS: PCP Internal Medicine; Visit Provider Internal Medicine
DX: M54.50 Low back pain, unspecified (principal)

== ENCOUNTER 2025-03-11 15:44 | Outpatient (REF) | payer OTHER, SELFPAY ==
[2025-03-11 17:26] LABS: Appearance Urine Cloudy; Glucose Urine UA Negative (Negative); PH 7.0 (5.0-9.0); Specific Gravity - Urine 1.015 (1.005-1.025); UMIC TRIGGER UACC YES
[2025-03-11 17:31] LABS: UACC Culture Trigger YES
[2025-03-11 17:46] LABS: Alanine Aminotransferase 95 U/L (0-31); Albumin Level 4.0 g/dL (3.5-5.0); Alkaline Phosphatase 71 U/L (39-117); Anion Gap 11 (12-20); Aspartate Amino Transferase 58 U/L (5-31); Blood Urea Nitrogen 15 mg/dL (9-16); Calcium 8.7 mg/dL (8.4-10.2); Carbon Dioxide 25 mmol/L (22-29); Chloride 108 mmol/L (96-108); Cholesterol 216 mg/dL (<200); Estimated Glomerular Filt Rate > 60; HDL Cholesterol 37 mg/dL (>40); Potassium 4.0 mmol/L (3.3-5.1); Sodium 140 mmol/L (135-145); Total Protein 7.4 g/dL (6.5-8.0); Triglycerides 282 mg/dL (<150)
== END 2025-03-11 15:45 | disposition home or self-care (01) ==
LOC: HO.LAB 15:44
PROVIDERS: PCP Internal Medicine; Visit Provider Internal Medicine
DX: Z00.00 Encounter for general adult medical examination without abnormal findings (principal); Z13.6 Encounter for screening for cardiovascular disorders
CPT/HCPCS: 36415; 80053; 80061; 81001; 87086

== ENCOUNTER 2025-04-19 10:18 | Outpatient (REF) | payer OTHER, SELFPAY ==
[2025-04-19 12:38] LABS: Alanine Aminotransferase 81 U/L (0-31); Albumin Level 4.0 g/dL (3.5-5.0); Alkaline Phosphatase 75 U/L (39-117); Anion Gap 11 (12-20); Aspartate Amino Transferase 42 U/L (5-31); Blood Urea Nitrogen 17 mg/dL (9-16); Calcium 9.4 mg/dL (8.4-10.2); Carbon Dioxide 27 mmol/L (22-29); Chloride 107 mmol/L (96-108); Estimated Glomerular Filt Rate > 60; Potassium 3.8 mmol/L (3.3-5.1); Sodium 141 mmol/L (135-145); Total Protein 7.1 g/dL (6.5-8.0)
[2025-04-19 13:42] LABS: Appearance Urine Turbid; Glucose Urine UA Negative (Negative); PH 5.5 (5.0-9.0); Specific Gravity - Urine 1.025 (1.005-1.025)
== END 2025-04-19 10:19 | disposition home or self-care (01) ==
LOC: HO.HMGCLDS 10:18
PROVIDERS: PCP Internal Medicine; Visit Provider Internal Medicine
DX: E11.9 Type 2 diabetes mellitus without complications (principal); R30.0 Dysuria
CPT/HCPCS: 36415; 80053; 81003; 83036